=== PATIENT | male | born 1960 | race Caucasian/White ===

== ENCOUNTER 2024-01-26 09:24 | Inpatient (IN) ==
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
[2024-01-26] MEDS: SODIUM CHLORIDE 0.9% 1,000 ML IV ONE (10:18)
[2024-01-26 10:37] LABS: Basophils # (auto) 0.04 K/uL (0.00-0.20); Basophils % (auto) 0.5 %; Eosinophils # (auto) 0.05 K/uL (0.00-0.50); Eosinophils % (auto) 0.6 %; Hemoglobin 12.4 g/dl (14.0-18.0); Immature Granulocytes # (auto) 0.05 K/uL (0.01-0.20); Immature Granulocytes % (auto) 0.6 %; Lymphocytes # (auto) 1.24 K/uL (1.20-3.40); Lymphocytes % (auto) 15.1 %; Mean Corpuscular Hemoglobin 28.7 pg (25.0-34.0); Mean Corpuscular Hgb Conc 31.8 g/dL (32.0-36.0); Mean Corpuscular Volume 90.3 fL (80.0-100.0); Mean Platelet Volume 9.7 fL (9.4-12.4); Monocytes # (auto) 0.63 K/uL (0.11-0.59); Monocytes % (auto) 7.7 %; Neutrophils % (auto) 75.5 %; Platelet Count 364 K/uL (130-400); RDW Coefficient of Variation 13.8 % (11.5-14.5); RDW Standard Deviation 45.9 fL (36.4-46.3); Red Blood Count 4.32 M/uL (4.70-6.10); White Blood Count 8.21 K/ul (4.8-10.8)
--- NOTE | 2024-01-26 10:49 | XRay Report ---
XR chest 1V portable CLINICAL HISTORY: Cough. COMPARISON STUDY: Chest CT April 27, 2006. Chest radiograph November 25, 2023. FINDINGS: There is no pneumothorax. A small left pleural effusion has decreased in size since prior c hest radiograph of November 25, 2023. There is moderate left lower lung opacity. This was shown on prior e xam. Emphysema is present. There is no evidence for pulmonary edema. Cardiomediastinal silhouette is unremarkable. IMPRESSION: 1. Left lower lung opacity. The appearance favors pneumonia. However, radiographic follow-up is bladimir mmended to ensure resolution and exclude the possibility of an underlying pulmonary lesion given pers istence. Alternatively, a chest CT could be obtained. 2. Interval decrease in size of a left pleural effusion. ACT 112: Negative or not required by law. Electronically signed by: Jj Sifuentes M.D. 01/26/2024 10:47 AM
[2024-01-26 10:54] LABS: Albumin Globulin Ratio 0.8 (0.9-2); Albumin Level 3.8 gm/dl (3.4-5.0); BUN Creatinine Ratio 13.8 (10-20); Bilirubin,Total 0.5 mg/dl (0.2-1.0); Calcium 9.8 mg/dl (8.6-10.3); Creatinine Clr Calc Pharmacy 50.4 ml/min; Est GFR (African American) 82.1 ml/min; Est GFR (Non-African American) 70.9 ml/min; Globulin 4.8 gm/dl (2.5-4.0); Potassium 4.1 mmol/L (3.5-5.1); Total Protein 8.6 gm/dl (6.0-8.3)
[2024-01-26 11:00] LABS: Troponin I High Sensitivity 5.1 pg/ml (0-20)
[2024-01-26 11:09] LABS: Thyroid Stimulating Hormone 1.317 uIu/ml (0.300-4.500)
[2024-01-26] MEDS: OPTIRAY 320 125ml IV ONE (11:27)
--- NOTE | 2024-01-26 11:58 | Electrocardiogram Report ---
Test Reason : Blood Pressure : */* mmHG Vent. Rate : 87 BPM Atrial Rate : 87 BPM P-R Int : 116 ms QRS Dur : 80 ms QT Int : 366 ms P-R-T Axes : 80 71 62 degrees QTcB Int : 440 ms Normal sinus rhythm Diffuse Nonspecific ST abnormality Abnormal ECG When compared with ECG of 25-Nov-2023 06:17, No significant change was found Confirmed by Pasha Rincon ([id number]) on 01/26/2024 11:58:10 AM Referred By: REFERRED SELF Confirmed By: Pasha Rincon
--- NOTE | 2024-01-26 12:01 | CT Scan Report ---
CT ANGIOGRAPHY OF THE CHEST, PULMONARY EMBOLUS PROTOCOL CLINICAL HISTORY: Cough. Dyspnea. Evaluate for pulmonary embolus. COMPARISON STUDY: Chest CT April 27, 2006. Chest radiograph performed earlier today. TECHNIQUE: Following IV administration of 84 mL of Optiray, helical axial images of the chest were ob tained utilizing the pulmonary embolus protocol. Maximal intensity projections and sagittal and abdias nal reformats were viewed on an independent 3D workstation. IV contrast was administered without com plication. Automated exposure control was utilized for the study. A dose lowering technique was uti lized adhering to the principles of ALARA. CT DOSE: 373.57 mGy.cm FINDINGS: No pulmonary emboli are identified. There is no thoracic aortic dissection. There is moder ate plaque within the thoracic aorta. Note is made of occlusion of the proximal left subclavian arter y with reconstitution at the level of the origin of the left vertebral artery. Size of the heart is n ormal. No pericardial effusion. Mildly enlarged left hilar lymph nodes are present. Index left infrah ilar node on image 131 measures 1.9 x 1.2 cm. There is no pneumothorax. A moderate-sized loculated le ft pleural effusion with pleural thickening is present. There is an associated subpleural left lower lobe opacity with volume loss that measures 5.5 x 2.4 cm. This contains central lucency which likely reflects aerated emphysematous lung. Subpleural ground glass right lower lobe opacity is noted. Sever al left lower lobe subpleural nodular opacities are noted. The largest is a 1 cm focus on image 127. There is severe emphysema. Irregular right apical opacity is noted. This was present on CT of 2005 although the configuration has slightly changed. A 2.8 x 1.7 cm density with peripheral laura cency within the right lung apex is present. An 8 mm intraluminal density within the left upper lobe bronchus/takeoff of the lingular bronchus is noted. This is likely contiguous with the adjacent appar ent enlarged lymph node. Visualized portions of the upper abdomen are unremarkable. IMPRESSION: 1. No pulmonary emboli identified. 2. Loculated moderate size left pleural effusion with associated pleural thickening. This could refle ct a chronic pleural effusion. However, an empyema could appear similar. 3. Associated 5.5 x 2.4 cm subpleural left lower lobe opacity with volume loss. This contains central lucency which likely reflects aerated emphysematous lung. This could represent pneumonia. Developing round atelectasis could appear similar. A neoplastic etiology is considered less likely. However, a follow-up chest CT in 3 months to ensure stability/resolution is recommended. In addition, Pulmonary consultation is suggested. 4. 2.8 x 1.7 cm right apical density with peripheral lucency. This is nonspecific although could repr esent a mycetoma. Adjacent opacity favors scarring. Again, this is probably benign but should be asse ssed on follow-up CT. 5. Severe emphysema. 6. Left infrahilar lymph node versus mass which measures 1.9 x 1.2 cm. Possible associated endobronc hial component extending into the left upper lobe/lingular bronchus. A neoplastic etiology cannot be excluded. This can be assessed with bronchoscopy or short-term imaging follow-up. 7. Multiple indeterminate subpleural nodular densities within the left lower lobe. These could be inf ectious or neoplastic and can be assessed on follow-up CT. 7. Occlusion of the proximal left subclavian artery with reconstitution at the takeoff of the left ve rtebral artery. ACT 112: Positive. There are findings on this exam that require communication between the performing entity and the patient following Patient Test Result Information Act ([place] Act 112) guidelines. Electronically signed by: Jj Sifuentes M.D. 01/26/2024 11:58 AM
[2024-01-26 13:02] LABS: Influenza A virus by PCR Negative (Neg); Influenza B virus by PCR Negative (Neg); RSV by PCR Negative (Neg); SARS CoV2 RNA(COVID-19) Ceph NEGATIVE (Negative)
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
[2024-01-26] MEDS ORDERED: VANCOMYCIN CONSULT ACTIVE PRN (13:28)
[2024-01-26] MEDS: CEFEPIME 2,000 MG in SYRINGE 0 ML IV STA (14:09)
[2024-01-26] MEDS: VANCOMYCIN HCL 1,000 MG in SODIUM CHLORIDE 0.9% 250 ML IV STA (14:14)
[2024-01-26] MEDS ORDERED: POLYETHYLENE (MIRALAX) 17 GM PACK PO PRN (15:39)
[2024-01-26] MEDS ORDERED: ALUMINUM/MAGNESIUM SUSP 30 ML UDC PO PRN (15:39)
[2024-01-26] MEDS ORDERED: ONDANSETRON INJ 2 MG/ML 2 ML VIAL IV PRN (15:39)
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
[2024-01-26 16:09] LABS: Basophils # (auto) 0.02 K/uL (0.00-0.20); Basophils % (auto) 0.3 %; Eosinophils # (auto) 0.11 K/uL (0.00-0.50); Eosinophils % (auto) 1.7 %; Hematocrit (blood only) 32.9 % (42.0-52.0); Hemoglobin 10.6 g/dl (14.0-18.0); Immature Granulocytes # (auto) 0.03 K/uL (0.01-0.20); Immature Granulocytes % (auto) 0.5 %; Lymphocytes # (auto) 1.45 K/uL (1.20-3.40); Lymphocytes % (auto) 22.3 %; Mean Corpuscular Hemoglobin 28.5 pg (25.0-34.0); Mean Corpuscular Hgb Conc 32.2 g/dL (32.0-36.0); Mean Corpuscular Volume 88.4 fL (80.0-100.0); Mean Platelet Volume 9.2 fL (9.4-12.4); Monocytes # (auto) 0.53 K/uL (0.11-0.59); Monocytes % (auto) 8.1 %; Neutrophils # (auto) 4.37 K/uL (1.40-6.50); Neutrophils % (auto) 67.1 %; Platelet Count 325 K/uL (130-400); RDW Coefficient of Variation 13.8 % (11.5-14.5); RDW Standard Deviation 44.4 fL (36.4-46.3); Red Blood Count 3.72 M/uL (4.70-6.10); White Blood Count 6.51 K/ul (4.8-10.8)
[2024-01-26] MEDS: PIPERACILLIN/TAZOBACTAM 4.5 GM/100 ML BAG IV ONE (16:15)
[2024-01-26] MEDS: NICOTINE 21 MG/24 HR TDSY TD SCH (16:17)
--- NOTE | 2024-01-26 16:23 | Pharmacy Report ---
Pharmacy PK ABX Note - Date of Service January 26, 2024 - Assessment and Plan Assessment 63 year old M receiving vancomycin and zosyn for treatment of pulmonary infection- empyema of left pleural space. Blood culture pending. MRSA nasal pending. Renal function stable. Day #1 of antimicrobial therapy. Plan Vancomycin * Loading dose: 1000 mg IV x 1 * Maintenance dose: 1250 mg IV every 24 hours starting tonight * Regimen is predicted to achieve target AUC/BETITO of 400-600 mg/L.hr * Will obtain a level after ~ 48h of therapy (or sooner if clinically indicated). Pharmacy will continue to follow and will adjust dose/frequency as necessary. Thank you. Pharmacy has transitioned to AUC monitoring for vancomycin. AUC/BETITO is the preferred PK/PD target and is associated with decreased risk of nephrotoxicity compared to traditional trough targets.
[2024-01-26 16:25] LABS: Albumin Globulin Ratio 0.8 (0.9-2); Albumin Level 3.2 gm/dl (3.4-5.0); Bilirubin,Total 0.5 mg/dl (0.2-1.0); Calcium 8.7 mg/dl (8.6-10.3); Est GFR (African American) 99.5 ml/min; Est GFR (Non-African American) 85.8 ml/min; Globulin 4.1 gm/dl (2.5-4.0); Potassium 3.9 mmol/L (3.5-5.1); Total Protein 7.3 gm/dl (6.0-8.3)
[2024-01-26] MEDS: VANCOMYCIN HCL 1,250 MG in SODIUM CHLORIDE 0.9% 250 ML IV SCH (20:56)
[2024-01-26] MEDS: PIPERACILLIN/TAZOBACTAM 4.5 GM in DEXTROSE 5% MINI-B 100 ML IV SCH (22:31)
[2024-01-27 07:52] LABS: Basophils # (auto) 0.02 K/uL (0.00-0.20); Basophils % (auto) 0.3 %; Eosinophils # (auto) 0.12 K/uL (0.00-0.50); Eosinophils % (auto) 1.7 %; Hematocrit (blood only) 33.8 % (42.0-52.0); Hemoglobin 10.7 g/dl (14.0-18.0); Immature Granulocytes # (auto) 0.04 K/uL (0.01-0.20); Immature Granulocytes % (auto) 0.6 %; Mean Corpuscular Hemoglobin 28.1 pg (25.0-34.0); Mean Corpuscular Hgb Conc 31.7 g/dL (32.0-36.0); Mean Corpuscular Volume 88.7 fL (80.0-100.0); Mean Platelet Volume 9.3 fL (9.4-12.4); Monocytes # (auto) 0.61 K/uL (0.11-0.59); Monocytes % (auto) 8.8 %; Neutrophils # (auto) 5.24 K/uL (1.40-6.50); Neutrophils % (auto) 75.6 %; Platelet Count 304 K/uL (130-400); RDW Coefficient of Variation 13.8 % (11.5-14.5); RDW Standard Deviation 44.8 fL (36.4-46.3); Red Blood Count 3.81 M/uL (4.70-6.10); White Blood Count 6.93 K/ul (4.8-10.8)
[2024-01-27 08:10] LABS: Albumin Globulin Ratio 0.8 (0.9-2); Albumin Level 3.2 gm/dl (3.4-5.0); BUN Creatinine Ratio 10.4 (10-20); Bilirubin,Total 0.6 mg/dl (0.2-1.0); Calcium 8.7 mg/dl (8.6-10.3); Creatinine Clr Calc Pharmacy 59.4 ml/min; Est GFR (African American) 95.8 ml/min; Est GFR (Non-African American) 82.6 ml/min; Globulin 3.8 gm/dl (2.5-4.0); Potassium 4.1 mmol/L (3.5-5.1)
--- NOTE | 2024-01-27 11:27 | Pulmonary Consultation ---
Date of Consultation January 27, 2024 Assessment & Plan (1) Pleural effusion: Etiology is broad including infectious etiology and atypical infectious etiology and malignancy. Pleural fluid appears to be quite bloody. Unclear whether percutaneous chest tube will be successful in draining the effusion. I did p lace a 14 [place] pigtail catheter in the left pleural effusion today which drained about 100 cc of bloody fluid. Hesitant to start dornase and tPA protocol at this time given appearance of bloody effusion. Follow output over next 24 hours and consider transfer to a tertiary center for VATS or further intervention. Follow cytology and culture studies. Continue with Zosyn. Malignancy high on the differential given the CT findings and smoking history. Patient also with weight loss. (2) Emphysema: Symptoms appear stable at this time. No role for steroids. History of Present Illness Reason for Consultation: Left pleural effusion concerning for empyema Attending Physician: Kristin Pettit MD History of Present Illness 63-year-old male with a history of weight loss, emphysema CT chest which was positive for loculated pleural effusion concerning for empyema presenting to the ER for evaluation. CT chest revealed severe emphysema, hilar lymph nodes which were enlarged and possible associate endobronchial component extending to the left upper lobe lingular bronchus. Multiple undetermined subpleural nodular densities were seen in the left lower lobe. Loculated moderate size pleural effusion was seen with split pleural sign. Patient is hemodynamically stable. He is weak and fatigued. He is a heavy smoker. Allergies Allergy/AdvReac Type Severity Reaction Status Date / Time rosuvastatin Allergy Severe Seizure Unverified 01/26/24 10:57 codeine Allergy Unknown RASH AND Verified 01/26/24 10:57 SHAKY morphine Allergy Unknown GI UPSET Verified 01/26/24 10:57 AND TACHYCARDIA oxycodone Allergy Unknown RASH AND Verified 01/26/24 10:57 SHAKY Crestor Allergy Seizure Uncoded 12/07/23 15:15 Home Medications Medication Instructions Recorded Confirmed Type aspirin 81 mg tablet,delayed 81 mg PO DAILY 06/22/19 01/26/24 History release (Adult Aspirin Regimen) Patient History Family History Uncle Cancer Other Lung disease Denies family history of Sudden Ovarian cancer Prostate cancer Heart disease Myocardial infarction Breast cancer Stroke Social History Smoking Status: Current every day smoker Tobacco Type: Cigarettes Cigarettes Per Day: 3; Second Hand Exposure: Yes; Do You Dip or Chew Tobacco: No; Hx Alcohol Use: No Hx Substance Use: No Preferred Language: Divehi Communication Ability: Effective Lug Loader Required: No Beliefs That Will Affect Care: None marital status: Current Living Situation: Alone current occupational status: employed current occupation: [employer] Feels Safe at Home: Yes Childhood Exposure to Second-Hand Smoke: No Diet: regular caffeine: Yes Dental Care, Regularly: No Physical Activity Frequency: Daily Seatbelt Use: always Sunscreen Use: No Assistive Devices: None Review of Systems Review of Systems: All systems reviewed & are unremarkable except as noted in HPI & below Physical Exam Physical Exam: Constitutional: Patient appears to be of their stated age. Patient is in no apparent distress. Patient is well-developed. Eyes: Pupils are equal round and reactive to light. Conjunctivae are normal. Anicteric sclera. Ears nose, mouth and throat: Mallampati class 2. Normal posterior oropharynx. Uvula is midline. Neck: Trachea is midline. Visual inspection is normal. Respiratory: Rhonchi in the left lower lobes. Cardiovascular: Regular rate and rhythm. No murmurs. No edema. Gastrointestinal: Normal bowel sounds, soft, nontender and nondistended. No hepatosplenomegaly noted. Musculoskeletal: No cyanosis. Patient is able to move all extremities. Strength is 5 out of 5 in the upper and lower extremities. Skin: No rashes, warm dry and intact. Neurologic: No obvious focal neurological deficits seen. Psychiatric: Alert and oriented x3 with a euthymic affect. Results & Data Results & Data Vital Signs (Past 12 Hours) Vital Signs Temp Pulse Resp BP Pulse Ox O2 Del Method 01/27/24 08:10 36.8 C 91 H 16 95/60 L 91 Room Air 01/27/24 02:40 37.3 C 82 14 90/59 L 91 Room Air PG Care Time/CCT Total # of Minutes Spent Total Time Spent with Patient: Total time spent is greater than 50% in coordination of care (as documented) at patient's floor/unit and/or counseling patient: Coding Level of Care Code 42157 IN/OBS CONSULT LVL 5,80M Diagnoses Pleural effusion J90 Emphysema J43.9
--- NOTE | 2024-01-27 13:25 | Procedure Note ---
Procedure Note Date of Service January 27, 2024 PIGTAIL CATHETER PLACEMENT NOTE: Procedure: Pigtail Catheter Chest Tube Placement Indication: Loculated left pleural effusion Anesthesia: 10 mL lidocaine 2% Written consent was obtained and placed on the chart. Timeout was done prior to the procedure. Prior to procedure, chest x-ray films were reviewed by myself and demonstrated small loculated left effusion. A time-out was completed verifying correct patient, procedure, site, positioning, and implant(s) or special equipment if applicable. Utilizing bedside ultrasound, chest wall was evaluated for location for optimal chest tube placement. Location between the 6 and 7 ribs were marked on the skin using gentle pressure. The left sided chest wall was prepped with chlorhexidine and draped in the typical sterile fashion. 10 mL of 1% Lidocaine without epinephrine was used to anesthetize the skin down to the dorsal surface of the 6 rib. Fluid return confirmed entry into the pleural space. Lidocaine was injected into the pleural space for increased anesthetization. Introducer needle on syringe was inserted in perpendicular fashion taking care to ride just above the dorsal surface of the 6 rib. Entry into the pleural space was heralded by fluid return into the syringe while under gentle aspiration. Guide wire was advanced into the pleural space without resistance and the introducer needle was subsequently removed. Scalpel was used to make small incision of the superficial tissue, parallel to the direction of the rib anatomy. Dilator was advanced uneventfully over the guide wire into the pleural space. 14 Spanish Pigtail Catheter was inserted into the pleural space. Inner introducer and guide wire were removed. Drain was immediately connected to pre-prepared CONCETTA pleur-evac system. Pigtail was sutured securely in place and sterile dressing was applied. Chest tube was placed to -20 cmH2O suction. Patient tolerated procedure well. Blood Loss: Minimal Complications: None Postprocedure chest x-ray is pending. Follow-up cultures, cell counts and cytology. [facility] [place] Procedure Codes (Charges) Pulmonary/Thoracic Procedure 1: Pulmonary and Thoracic: 37849 Tube thoracostomy Procedure 2: Pulmonary and Thoracic: 42443 US, Chest, real time with imaging documentation Coding CPT Codes Pulmonary/Thoracic - Pulmonary and Thoracic: 89766 Tube thoracostomy ([id number]) Pulmonary/Thoracic - Pulmonary and Thoracic: 51986 US, Chest, real time with imaging documentation ([id number]) Additional Codes Date of Service (PG.SURGERY)
--- NOTE | 2024-01-27 13:40 | XRay Report ---
XR chest 1V portable CLINICAL HISTORY: chest tube placement COMPARISON STUDY: Chest radiograph and chest CT January 26, 2024 FINDINGS: There is no pneumothorax following placement of a left basilar pleural catheter. The left p leural effusion has decreased in size since prior exam. Left lower lung opacity is again noted. The r ight apical density with peripheral lucency is better depicted on CT. No evidence for pulmonary edema . Cardiomediastinal silhouette is normal. IMPRESSION: No pneumothorax following placement of a left pleural catheter. Decrease in size of the left pleural effusion. ACT 112: Negative or not required by law. Electronically signed by: Jj Sifuentes M.D. 01/27/2024 1:39 PM
--- NOTE | 2024-01-27 13:41 | XCELERA ---
[id number] \\[id number]}___[id number]
[2024-01-27 14:38] LABS: Albumin Level 3.3 gm/dl (3.4-5.0); Bilirubin,Total 0.5 mg/dl (0.2-1.0); Total Protein 7.3 gm/dl (6.0-8.3)
[2024-01-27 14:45] LABS: Total Protein Pleural Fluid 5.1 gm/dl
[2024-01-27 14:50] LABS: Appearance Pleural Fluid Bloody; Color Pleural Fluid Red; RBC Pleural Fluid Auto 989000 /uL; Source Pleural Fluid Left Lung; WBC Pleural Fluid Auto 4285 /uL
--- NOTE | 2024-01-27 15:09 | Hospitalist Progress Note ---
Date of Service January 27, 2024 Assessment & Plan (1) Empyema of left pleural space: Plan: Patient presents with fatigue, dizziness CT of the chest consistent with left pleural effusion, possible empyema Suspected metastatic lung cancer, based on the CAT scan findings real estate legal assistant carlos completed, chest tube and plan for bronch (2) Emphysema: Plan: Long history of smoking, underlying emphysema Nebulizers as needed (3) Hyperthyroidism: Plan: TSH normal Admission and Anticipated Discharge Date Admission Date: January 26, 2024 Subjective RESTING COMFORTABLY, NO SHORTNESS OF BREATH OR CHEST PAIN, DIZZINESS Physical Exam Physical Exam: Resting comfortably AAO#3, Non focal Lungs decreased / ronchi left lung base PA Soft, NT, ND, BS+ Skin no rash Pleasant and calm Results & Data Results & Data Vital Signs (Past 12 Hours) Vital Signs Temp Pulse Pulse Resp BP Pulse Ox O2 Del Method 01/27/24 15:01 37.1 C 90 18 106/69 95 Room Air 01/27/24 13:53 89 17 94/60 L 94 Room Air 01/27/24 13:04 91 H 16 98/67 L 95 Room Air 01/27/24 12:56 96 H 16 97/68 L 94 Room Air 01/27/24 12:45 93 H 16 97/64 L 95 Room Air 01/27/24 12:39 92 H 18 99/70 L 95 Room Air 01/27/24 12:36 95 H 18 105/72 95 Room Air 01/27/24 12:34 94 H 18 100/70 95 Room Air 01/27/24 12:30 93 H 18 114/79 95 Room Air 01/27/24 11:31 36.9 C 87 16 104/65 94 Room Air 01/27/24 08:10 36.8 C 91 H 16 95/60 L 91 Room Air PG Care Time/CCT Total # of Minutes Spent Total Time Spent with Patient: Total time spent is greater than 50% in coordination of care (as documented) at patient's floor/unit and/or counseling patient: Coding Level of Care Code 34515 SUB INP/OBS CARE 2/35MIN Diagnoses Empyema of left pleural space J86.9 Emphysema J43.9 Hyperthyroidism E05.90
[2024-01-27] MEDS: LIDOCAINE 2% 20 MG/ML 5 ML SYR IV ONE (16:47)
[2024-01-27] MEDS: LIDOCAINE 2% LOCAL 50 ML VIAL ONE (16:48)
[2024-01-28] MEDS: KETOROLAC TROMETHAMINE 15 MG/ML VIAL IV ONE
[2024-01-28 06:11] LABS: Basophils # (auto) 0.03 K/uL (0.00-0.20); Basophils % (auto) 0.5 %; Eosinophils # (auto) 0.17 K/uL (0.00-0.50); Eosinophils % (auto) 2.8 %; Hematocrit (blood only) 30.9 % (42.0-52.0); Hemoglobin 9.9 g/dl (14.0-18.0); Immature Granulocytes # (auto) 0.01 K/uL (0.01-0.20); Immature Granulocytes % (auto) 0.2 %; Lymphocytes # (auto) 1.17 K/uL (1.20-3.40); Lymphocytes % (auto) 19.6 %; Mean Corpuscular Hemoglobin 28.4 pg (25.0-34.0); Mean Corpuscular Volume 88.5 fL (80.0-100.0); Mean Platelet Volume 9.4 fL (9.4-12.4); Monocytes # (auto) 0.56 K/uL (0.11-0.59); Monocytes % (auto) 9.4 %; Neutrophils # (auto) 4.03 K/uL (1.40-6.50); Neutrophils % (auto) 67.5 %; Platelet Count 285 K/uL (130-400); RDW Coefficient of Variation 13.6 % (11.5-14.5); RDW Standard Deviation 43.8 fL (36.4-46.3); Red Blood Count 3.49 M/uL (4.70-6.10); White Blood Count 5.97 K/ul (4.8-10.8)
[2024-01-28 06:25] LABS: BUN Creatinine Ratio 10.6 (10-20); Calcium 8.9 mg/dl (8.6-10.3); Creatinine Clr Calc Pharmacy 55.1 ml/min; Est GFR (African American) 86.9 ml/min; Potassium 4.2 mmol/L (3.5-5.1)
[2024-01-28 07:04] LABS: Lymphocytes, Fluid 20 %; Neutrophils, Fluid 80 %
--- NOTE | 2024-01-28 07:16 | XRay Report ---
XR chest 1V portable CLINICAL HISTORY: chest tube TECHNIQUE: Single frontal radiograph of the chest was obtained. Comparison: Comparison is made to chest radiograph 01/27/2024 FINDINGS: Left chest tube is seen. The cardiomediastinal silhouette is normal. Left lower lung airspace opacity has increased in conspicuity from prior exam. Stable small left pleural effusion without evidence of pneumothorax. IMPRESSION: Left pleural effusion is seen with somewhat more prominent adjacent airspace opacity likely represent ing atelectasis with or without superimposed aspiration/pneumonia. ACT 112: Negative or not required by law. Electronically signed by: Jose White M.D. 01/28/2024 7:15 AM
--- NOTE | 2024-01-28 07:57 | Pulmonology Progress Note ---
Date of Service January 28, 2024 Assessment & Plan (1) Pleural effusion: (2) Emphysema: Plan IMPRESSION: 63-year-old male with a significant past medical history of emphysema with likely COPD diagnosis in the setting of significant smoking history with findings of LEFT lower lobe dense consolidative process with associated effusion who underwent pigtail catheter placement yesterday for characterization of fluid. 1. LEFT-sided effusion - Pleural fluid reviewed and appears to be exudative with predominant RBCs. Cultures and cytology pending at this point. Effusion concerning for empyema versus parapneumonic effusion. Currently covered with broad-spectrum antibiotics in the form of Zosyn. Given persistence of effusion despite catheter in place and associated decreased chest tube output, consideration for intrapleural tPA/dornase administration (MIST2 Protocol) could be considered for this patient. Previous concerns were for the bloody output from the effusion itself. At this point, it may make more sense to attempt MIST2 prior to consideration for transfer for VATS - which may ultimately need to occur. 2. Pneumonia - LEFT lower lobe consolidative process noted with associated effusion as above. Continue with antibiotic coverage for now pending cultures of pleural fluid. Consideration for de-escalation pending these results. 3. RIGHT upper lobe apical lung density - Possible mycetoma. Short-term follow-up CT. 4. Subpleural nodules with associated LEFT infrahilar lymph node enlargement - While neoplastic process is certainly on the differential, short-term follow-up CT is favored after resolution of #1. This can be arranged in outpatient follow-up as well. Thank you for allowing us to participate in the care of this pleasant patient. Pulmonary medicine will continue to follow along. Admission and Anticipated Discharge Date Admission Date: January 26, 2024 Subjective Patient seen and evaluated at bedside. He reports that he is breathing better since the placement of chest tube. He notes discomfort at the chest tube site, but no pleuritic discomfort, dyspnea, cough, hemoptysis. Review of Systems Review of Systems: A complete 10 point review of systems was reviewed with the patient with pertinent positives and negatives as per history of present illness. All else were negative. Physical Exam Physical Exam: VITAL SIGNS - Vital signs and nursing notes were reviewed. GENERAL - 63-year-old male appearing his stated age who is in no acute distress. Communicates well with provider and answers questions appropriately. SKIN - LEFT sided posterior chest tube site clean, dry, and intact. NOSE - Midline and without cyanosis. MOUTH/OROPHARYNX - Without perioral cyanosis. NECK - Neck with FROM. LUNGS - Chest wall evaluation demonstrates increased chest wall A:P diameter. Auscultation reveals delayed air entry without wheeze. CARDIAC - RRR with S1/S2. No murmur, rubs, or gallops appreciated. ABDOMEN - Abdominal inspection demonstrates flat. BS normoactive all four quadrants. No tenderness, palpable masses, or ascites noted. EXTREMITIES - Nail clubbing not present. No peripheral cyanosis. No pretibial edema present. +3/5 radial palpated throughout. PSYCH - A&Ox3 and cooperates fully with examiner. Pt is very pleasant and interacts well with examiner. Results & Data Results & Data Vital Signs (Past 12 Hours) Vital Signs Temp Pulse Pulse Resp BP Pulse Ox O2 Del Method 01/28/24 03:06 36.6 C 66 14 99/65 L 98 Nasal Cannula 01/28/24 00:14 Nasal Cannula 01/28/24 00:12 87 01/27/24 22:55 37.5 C 84 16 99/66 L 93 Room Air O2 Flow Rate 01/28/24 03:06 2.0 01/28/24 00:14 2 01/28/24 00:12 01/27/24 22:55 PG Care Time/CCT Total # of Minutes Spent Total Time Spent with Patient: Total time spent is greater than 50% in coordination of care (as documented) at patient's floor/unit and/or counseling patient: Coding Level of Care Code 26157 SUB INP/OBS CARE 2/35MIN Diagnoses Pleural effusion J90 Emphysema J43.9
[2024-01-28] MEDS: ALTEPLASE, RECOMBINANT 10 MG in SYRINGE 50 ML IPL SCH (12:59)
[2024-01-28] MEDS: DORNASE ALFA 5 ML in SYRINGE 25 ML IPL SCH (15:28)
--- NOTE | 2024-01-28 17:48 | Hospitalist Progress Note ---
Date of Service January 28, 2024 Assessment & Plan (1) Empyema of left pleural space: Plan: Patient presents with fatigue, dizziness, and cough with shortness of breath developing over 6 to 7 weeks. In the setting of history of smoking and known COPD, weight loss He was treated with doxycycline 7 weeks ago after being seen in the ER CT of the chest with left loculated moderate-sized pleural effusion with pleural thickening, possible empyema and also with 5.5 x 2.4 cm subpleural left lower lobe opacity with volume loss with central lucency which could represent pneumonia, neoplastic etiology less likely. Also with right apical 2.8 x 1.7 cm density with peripheral lucency could represent mycetoma. Also with left infrahilar lymph node versus mass measuring 1.9 x 1.2 cm and possible associated endobronchial component extending to left upper lobe/lingular bronchus, multiple indeterminant subpleural nodular densities left lower lobe infectious versus neoplastic. 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 Pleural effusion fluid was bloody and is consistent with exudative effusion Pleural fluid cultures with Gram stain negative for bacteria, many WBCs, culture pending Pleural fluid cytology pending Sputum culture pending Blood culture-no growth to date Flu/COVID/RSV negative Remains afebrile, no leukocytosis, symptoms are improving Continue Zosyn Start MIST-2 protocol x 3 days on 01/27 If not improving, may need transfer for VATS procedure Will need repeat chest CT in short-term follow-up to assess for malignancy Follow CBC given mild anemia and bloody effusion, BMP Defer to pulmonology as to whether needs bronchoscopy or not (2) Emphysema: Plan: Long history of smoking, underlying emphysema Nebulizers as needed, no need for steroids Is not on maintenance inhalers (3) Hyperthyroidism: Plan: TSH normal Not on medication although methimazole is in his chart in the past Plan DVT prophylaxis-add SCDs, avoid anticoagulants due to bloody pleural fluid drainage and mildly decreasing hemoglobin Disposition-continued stay on telemetry unit Admission and Anticipated Discharge Date Admission Date: January 26, 2024 Subjective Patient has some pain in the left side of his back at the site of his chest tube but otherwise feels improvement with his shortness of breath. He has no other complaints. He did cough up sputum for sputum sample and reports there was some blood in it Telemetry with normal sinus rhythm and rates in the 60s to 80s Physical Exam Constitutional: + thin; no acute distress Respiratory: normal respiratory effort; no cough Auscultation: + diminished lung sounds (Left base) and + wheezes (Scattered expiratory wheezes on the right); no crackles Cardiovascular: RRR, no murmur, no edema Gastrointestinal (Abdomen): normal bowel sounds, soft, nontender, no hepatos plenomegaly Psychiatric: A+Ox3, euthymic affect Results & Data Results & Data Vital Signs (Past 12 Hours) Vital Signs Temp Pulse Pulse Resp BP Pulse Ox O2 Del Method 01/28/24 15:55 36.7 C 79 19 105/71 94 Room Air 01/28/24 13:01 81 01/28/24 11:23 36.7 C 68 19 109/72 97 Nasal Cannula 01/28/24 08:00 71 01/28/24 08:00 Nasal Cannula O2 Flow Rate FiO2 01/28/24 15:55 01/28/24 13:01 01/28/24 11:23 2 01/28/24 08:00 01/28/24 08:00 2 Laboratory Results CBC, BMP, sputum culture, pleural fluid cultures, blood culture reviewed Diagnostic Findings Chest EXTR reviewed PG Care Time/CCT Total # of Minutes Spent Total Time Spent with Patient: Total time spent is greater than 50% in coordination of care (as documented) at patient's floor/unit and/or counseling patient: Coding Level of Care Code 40798 SUB INP/OBS CARE 2/35MIN Diagnoses Empyema of left pleural space J86.9 Emphysema J43.9 Hyperthyroidism E05.90
[2024-01-28] MEDS: ACETAMINOPHEN 325 MG TAB PO PRN (17:52)
[2024-01-28] MEDS ORDERED: ALBUT/IPRATROP 3MG/0.5MG NEB 3 ML VIAL NEB PRN (17:59)
[2024-01-28] MEDS: KETOROLAC TROMETHAMINE 15 MG/ML VIAL IV PRN (21:35)
[2024-01-29 06:13] LABS: Basophils # (auto) 0.02 K/uL (0.00-0.20); Basophils % (auto) 0.3 %; Eosinophils # (auto) 0.25 K/uL (0.00-0.50); Eosinophils % (auto) 4.2 %; Hematocrit (blood only) 33.4 % (42.0-52.0); Hemoglobin 10.8 g/dl (14.0-18.0); Immature Granulocytes # (auto) 0.02 K/uL (0.01-0.20); Immature Granulocytes % (auto) 0.3 %; Lymphocytes # (auto) 1.15 K/uL (1.20-3.40); Lymphocytes % (auto) 19.3 %; Mean Corpuscular Hemoglobin 28.6 pg (25.0-34.0); Mean Corpuscular Hgb Conc 32.3 g/dL (32.0-36.0); Mean Corpuscular Volume 88.4 fL (80.0-100.0); Mean Platelet Volume 9.5 fL (9.4-12.4); Monocytes # (auto) 0.51 K/uL (0.11-0.59); Monocytes % (auto) 8.5 %; Neutrophils # (auto) 4.02 K/uL (1.40-6.50); Neutrophils % (auto) 67.4 %; Platelet Count 321 K/uL (130-400); RDW Coefficient of Variation 13.5 % (11.5-14.5); RDW Standard Deviation 43.7 fL (36.4-46.3); Red Blood Count 3.78 M/uL (4.70-6.10); White Blood Count 5.97 K/ul (4.8-10.8)
[2024-01-29 06:19] LABS: BUN Creatinine Ratio 13.4 (10-20); Creatinine Clr Calc Pharmacy 51.6 ml/min; Est GFR (African American) 79.5 ml/min; Est GFR (Non-African American) 68.6 ml/min; Magnesium 2.2 mg/dl (1.7-2.4); Potassium 4.5 mmol/L (3.5-5.1)
--- NOTE | 2024-01-29 07:48 | Pulmonology Progress Note ---
Date of Service January 29, 2024 Assessment & Plan (1) Pleural effusion: (2) Emphysema: Plan IMPRESSION: 63-year-old male with a significant past medical history of emphysema with likely COPD diagnosis in the setting of significant smoking history with findings of LEFT lower lobe dense consolidative process with associated effusion who underwent pigtail catheter placement 01/27/2024. 1. LEFT-sided effusion -neutrophilic exudate, possibly secondary to lung abscess with empyema. Malignancy not excluded and cytology still pending. Continue drainage with mist 2 protocol and daily chest x-rays. Would keep chest tube in place until drainage is less than 200 cc per 24 hours and x-ray demonstrates improvement. May need CT scan prior to discontinuation of the tube. 2. Pneumonia - LEFT lower lobe consolidative process noted with associated effusion as above. Day #3 Zosyn. Can de-escalate to Unasyn 3. RIGHT upper lobe apical lung density - Possible mycetoma. Short-term follow-up CT. the apical density was identified to a lesser degree on the CT scan from 2005. 4. Subpleural nodules with associated LEFT infrahilar lymph node enlargement - While neoplastic process is certainly on the differential, short-term follow-up CT is favored after resolution of #1. This can be arranged in outpatient follow-up in 2 to 3 months Thank you for allowing us to participate in the care of this pleasant patient. Pulmonary medicine will continue to follow along. Admission and Anticipated Discharge Date Admission Date: January 26, 2024 Subjective Patient seen and examined. EMR reviewed. Patient reports he is doing well. He is not having any pain. He is having some slight blood-tinged sputum production but no fevers chills or night sweats. He has not noted any lower extremity edema. Appetite is good. Pain is well- controlled. Review of Systems 2 Review of Systems: All systems reviewed & are unremarkable except as noted in Subjective Physical Exam 2 Constitutional: + thin; no acute distress Neck: trachea midline, no thyromegaly Respiratory: no respiratory distress, no labored breathing, no cough and not tachypneic Auscultation: + diminished lung sounds Chest tube site dressed Cardiovascular: RRR, no murmur, no edema Gastrointestinal (Abdomen): normal bowel sounds, soft, nontender, no hepatosplenomegaly Musculoskeletal: Extremities: extremities normal to inspection Skin: no rashes, warm and dry Neurologic: Nonfocal exam Lymphatic: no cervical lymphadenopathy Results & Data Results & Data Vital Signs (Past 12 Hours) Vital Signs Temp Pulse Resp BP Pulse Ox O2 Del Method 01/29/24 03:13 36.3 C L 70 14 114/75 93 Room Air 01/28/24 23:11 36.5 C 65 14 105/69 94 Room Air Chest tube output, 450 cc last 24 hours Laboratory Results Microbiology 01/27/24 Unknown Sputum, Expectorated Gram Stain - Final 01/27/24 Unknown Sputum, Expectorated Sputum Culture - Final Light normal chyna. 01/26/24 13:38 Blood Aerobic Blood Culture - Preliminary No growth in Aerobic bottle after 48 hours. 01/26/24 13:38 Blood Anaerobic Blood Culture - Preliminary No growth in Anaerobic bottle after 48 hours. 01/27/24 13:10 Pleural Fluid Gram Stain - Final 01/27/24 13:10 Pleural Fluid Aerobic and Anaerobic Culture - Preliminary No growth to date. 01/29/24 05:42 01/29/24 05:42 Diagnostic Findings Chest x-ray from today was independently reviewed. Demonstrates improved aeration at the left lung base. PG Care Time/CCT Total # of Minutes Spent Total Time Spent with Patient: Total time spent is greater than 50% in coordination of care (as documented) at patient's floor/unit and/or counseling patient: Coding Level of Care Code 58386 SUB INP/OBS CARE 2/35MIN Diagnoses Pleural effusion J90 Emphysema J43.9
--- NOTE | 2024-01-29 08:33 | XRay Report ---
XR chest 1V portable HISTORY: chest tube COMPARISON: Chest 01/28/2024. FINDINGS: A left basilar chest tube is unchanged in position. A small left pleural effusion and left basilar densities persist. Suspect a tiny left apical pneumothorax demonstrated a maximal pleural gap of 4 mm. The heart is normal in size. Linear densities within the right midlung zone favor scarring or subsegmental atelectasis. Right apical pleural thickening/density persists. A right apical mycetom a is better appreciated on the recent chest CT. Emphysema again noted. IMPRESSION: 1. The left basilar chest tube is unchanged in position. A tiny left apical pneumothorax persists. 2. Small left pleural effusion and left basilar densities remain unchanged. 3. Emphysema. 4. Right apical pleural thickening with a right apical density suggestive of a mycetoma again noted. ACT 112: Negative or not required by law. Electronically signed by: Frankie Hawley M.D. 01/29/2024 8:30 AM
[2024-01-29] MEDS: AMPICILLIN/SULBACTAM SOD 3,000 MG in SODIUM CHLOR 0.9% MINI-B 100 ML IV SCH (10:27)
--- NOTE | 2024-01-29 17:34 | Hospitalist Progress Note ---
Date of Service January 29, 2024 Assessment & Plan (1) Empyema of left pleural space: Plan: Patient presents with fatigue, dizziness, and cough with shortness of breath developing over 6 to 7 weeks. In the setting of history of smoking and known COPD, weight loss He was treated with doxycycline 7 weeks ago for LLL PNA on CXR after being seen in the ER CT of the chest with left loculated moderate-sized pleural effusion with pleural thickening, possible empyema and also with 5.5 x 2.4 cm subpleural left lower lobe opacity with volume loss with central lucency which could represent pneumonia, neoplastic etiology less likely. Also with right apical 2.8 x 1.7 cm density with peripheral lucency could represent mycetoma (this was also present on CT [facility] from 2005 to a lesser degree). Also with left infrahilar lymph node versus mass measuring 1.9 x 1.2 cm and possible associated endobronchial component extending to left upper lobe/lingular bronchus, multiple indeterminant subpleural nodular densities left lower lobe infectious versus neoplastic. 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 Pleural effusion fluid was bloody and is consistent with exudative effusion Pleural fluid cultures with Gram stain negative for bacteria, many WBCs, culture pending but prelim negative Pleural fluid cytology with atypical epithelial cells but mostly blood, nondiagnostic Sputum culture light normal chyna AFB smear neg, AFB cx pending Blood culture-no growth to date Flu/COVID/RSV negative Remains afebrile, no leukocytosis, symptoms are improving, in midst of the MIST- 2 protocol and draining > 200mL/day Continue Zosyn Finish MIST-2 protocol x 3 days on 01/29-plan to remove chest tube after < 200mL/day drainage CXR with tiny left apical PTX on 01/28 If not improving, may need transfer for VATS procedure but seems less likely now as per PULM Will need repeat chest CT in short-term follow-up to assess for malignancy and improvement Continue oxycodone prn pain from chest tube Follow CBC given mild anemia and bloody effusion, bloody sputum Follow BMP Defer to pulmonology as to whether needs bronchoscopy or not for RUL mycetoma Also defer to PULM as to whether or not to reaspirate for repeat pleural fluid cytology given it was nondiagnostic (2) Emphysema: Plan: Long history of smoking, underlying emphysema Nebulizers as needed, no need for steroids Is not on maintenance inhalers (3) Hyperthyroidism: Plan: TSH normal Not on medication although methimazole is in his chart in the past Plan DVT prophylaxis-SCDs, avoid anticoagulants due to bloody pleural fluid drainage and mildly decreasing hemoglobin Disposition-continued stay on telemetry unit Admission and Anticipated Discharge Date Admission Date: January 26, 2024 Subjective Pt has some pain at chest tube site, still some small amounts of bloody sputum he is coughing up. Otherwise is eating, moving bowels, no other issues. Tele with NSR rate 60-70s Physical Exam Constitutional: + thin; no acute distress Respiratory: normal respiratory effort; no cough Auscultation: + diminished lung sounds (Left base); no crackles and no wheezes Cardiovascular: RRR, no murmur, no edema Gastrointestinal (Abdomen): normal bowel sounds, soft, nontender, no hepatosplenomegaly Psychiatric: A+Ox3, euthymic affect Results & Data Results & Data Vital Signs (Past 12 Hours) Vital Signs Temp Pulse Pulse Resp BP Pulse Ox O2 Del Method 01/29/24 14:43 77 01/29/24 14:42 36.9 C 74 16 105/73 95 Room Air 01/29/24 13:35 68 01/29/24 07:56 Room Air 01/29/24 07:48 36.7 C 86 17 106/75 94 Room Air Laboratory Results CBC,BMP, mag, sputum cx, pleural fluid cx, blood cx, and pleural fluid cytology reviewed PG Care Time/CCT Total # of Minutes Spent Total Time Spent with Patient: Total time spent is greater than 50% in coordination of care (as documented) at patient's floor/unit and/or counseling patient: Coding Level of Care Code 55745 SUB INP/OBS CARE 235MIN Diagnoses Empyema of left pleural space J86.9 Emphysema J43.9 Hyperthyroidism E05.90
[2024-01-30 07:07] LABS: Basophils # (auto) 0.02 K/uL (0.00-0.20); Basophils % (auto) 0.3 %; Eosinophils # (auto) 0.29 K/uL (0.00-0.50); Eosinophils % (auto) 4.9 %; Hematocrit (blood only) 32.2 % (42.0-52.0); Hemoglobin 10.4 g/dl (14.0-18.0); Immature Granulocytes # (auto) 0.03 K/uL (0.01-0.20); Immature Granulocytes % (auto) 0.5 %; Lymphocytes # (auto) 1.26 K/uL (1.20-3.40); Lymphocytes % (auto) 21.1 %; Mean Corpuscular Hemoglobin 28.6 pg (25.0-34.0); Mean Corpuscular Hgb Conc 32.3 g/dL (32.0-36.0); Mean Corpuscular Volume 88.5 fL (80.0-100.0); Mean Platelet Volume 9.4 fL (9.4-12.4); Monocytes # (auto) 0.48 K/uL (0.11-0.59); Monocytes % (auto) 8.1 %; Neutrophils # (auto) 3.88 K/uL (1.40-6.50); Neutrophils % (auto) 65.1 %; Platelet Count 332 K/uL (130-400); RDW Coefficient of Variation 13.9 % (11.5-14.5); RDW Standard Deviation 44.6 fL (36.4-46.3); Red Blood Count 3.64 M/uL (4.70-6.10); White Blood Count 5.96 K/ul (4.8-10.8)
--- NOTE | 2024-01-30 07:19 | XRay Report ---
XR chest 1V portable HISTORY: chest tube COMPARISON: Chest 01/29/2024. FINDINGS: Left basilar chest tube and a small left pleural effusion are again noted. No definite pneu mothorax. The heart is normal in size. Linear scarlike densities within the right midlung zone persis t. Emphysema again noted. Hazy left basilar density remains unchanged. No evidence for pulmonary candace a. No acute fractures. Right apical pleural thickening and a right apical nodular density remain unch anged. This may represent a mycetoma compared to the recent CT. IMPRESSION: 1. The left basilar chest tube remains unchanged in position. No definite pneumothorax. 2. Small left pleural effusion and left basilar densities persist. 3. Right apical density/mycetoma again noted. ACT 112: Negative or not required by law. Electronically signed by: Frankie Hawley M.D. 01/30/2024 7:18 AM
[2024-01-30 07:26] LABS: BUN Creatinine Ratio 14.3 (10-20); Calcium 8.8 mg/dl (8.6-10.3); Creatinine Clr Calc Pharmacy 68.2 ml/min; Est GFR (African American) 106.5 ml/min; Est GFR (Non-African American) 91.9 ml/min; Potassium 4.3 mmol/L (3.5-5.1)
--- NOTE | 2024-01-30 08:29 | Pulmonology Progress Note ---
Date of Service January 30, 2024 Assessment & Plan (1) Pleural effusion: (2) Emphysema: Plan IMPRESSION: 63-year-old male with a significant past medical history of emphysema with likely COPD diagnosis in the setting of significant smoking history with findings of LEFT lower lobe dense consolidative process with associated effusion who underwent pigtail catheter placement 01/27/2024. He is completed 2 to 3 days of the mist 2 protocol with radiographic and clinical improvement. Atypical cells were identified on cytology 1. LEFT-sided effusion -neutrophilic exudate, possibly secondary to lung abscess with empyema versus malignancy. At this point time would recommend completing 6 weeks of antimicrobial therapy. Can transition to oral Augmentin. Patient will need follow-up with pulmonary in 6 weeks and follow-up CT scan at that point in time to determine whether or not additional intervention is required. If the radiographic abnormalities persist, will need bronchoscopy with potential biopsy. Chest tube will remain in place until drainage is less than 200 cc. X-ray shows radiographic improvement. 2. Pneumonia - LEFT lower lobe consolidative process noted with associated effusion as above. Will transition to Augmentin with plans for 6-week course 3. RIGHT upper lobe apical lung density -short-term radiographic surveillance recommended 4. Subpleural nodules with associated LEFT infrahilar lymph node enlargement - While neoplastic process is certainly on the differential, short-term follow-up CT is favored after resolution of #1. This can be arranged in outpatient follow-up in 2 to 3 months Thank you for allowing us to participate in the care of this pleasant patient. Pulmonary medicine will continue to follow along. Admission and Anticipated Discharge Date Admission Date: January 26, 2024 Subjective Patient seen and examined. EMR reviewed. The patient reports that he is feeling well. He is on room air. He is not coughing or wheezing. The scant hemoptysis he experienced previously has resolved. He denies chest pain or palpitations. No significant lower extremity edema. Review of Systems 2 Review of Systems: All systems reviewed & are unremarkable except as noted in Subjective Physical Exam 2 Constitutional: + thin; no acute distress Neck: trachea midline, no thyromegaly Respiratory: no respiratory distress, no labored breathing, no cough and not tachypneic Auscultation: + diminished lung sounds Chest tube site dressed Cardiovascular: RRR, no murmur, no edema Gastrointestinal (Abdomen): normal bowel sounds, soft, nontender, no hepatosplenomegaly Musculoskeletal: Extremities: extremities normal to inspection Skin: no rashes, warm and dry Neurologic: Nonfocal exam Lymphatic: no cervical lymphadenopathy Results & Data Results & Data Vital Signs (Past 12 Hours) Vital Signs Temp Pulse Pulse Resp BP Pulse Ox O2 Del Method 01/30/24 07:29 36.9 C 74 17 123/77 93 Room Air 01/30/24 03:17 37.0 C 76 16 128/80 94 Room Air 01/30/24 01:14 37.1 C 77 14 112/71 95 Room Air 01/30/24 00:37 71 01/29/24 23:18 Room Air Chest tube output last 24 hours: 540 mL bloody fluid Laboratory Results 01/30/24 06:31 01/30/24 06:31 Pleural fluid cytology with atypical cells identified, unclear if these represent reactive mesothelial cells or potentially malignancy. Follow-up recommended PG Care Time/CCT Total # of Minutes Spent Total Time Spent with Patient: Total time spent is greater than 50% in coordination of care (as documented) at patient's floor/unit and/or counseling patient: Coding Level of Care Code 11198 SUB INP/OBS CARE 2/35MIN Diagnoses Pleural effusion J90 Emphysema J43.9
--- NOTE | 2024-01-30 10:33 | Hospitalist Progress Note ---
Date of Service January 30, 2024 Assessment & Plan (1) Empyema of left pleural space: Plan: Patient p/w fatigue, dizziness, and cough with shortness of breath developing over 6 to 7 weeks. In the setting of history of smoking and known COPD, weight loss He was treated with doxycycline 7 weeks ago for LLL PNA on CXR after being seen in the ER CT of the chest with left loculated moderate-sized pleural effusion with pleural thickening, possible empyema and also with 5.5 x 2.4 cm subpleural left lower lobe opacity with volume loss with central lucency which could represent pneumonia, neoplastic etiology less likely. Also with right apical 2.8 x 1.7 cm density with peripheral lucency could represent mycetoma (this was also present on CT [facility] from 2005 to a lesser degree). Also with left infrahilar lymph node versus mass measuring 1.9 x 1.2 cm and possible associated endobronchial component extending to left upper lobe/lingular bronchus, multiple indeterminant subpleural nodular densities left lower lobe infectious versus neoplastic. 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 Pleural effusion fluid was bloody and is consistent with exudative effusion Pleural fluid cultures with Gram stain negative for bacteria, many WBCs, culture pending but prelim negative Pleural fluid cytology with atypical epithelial cells but mostly blood, nondiagnostic Sputum culture light normal chyna AFB smear neg, AFB cx pending Blood culture-no growth to date Flu/COVID/RSV negative Remains afebrile, no leukocytosis, symptoms are improving, in midst of the MIST- 2 protocol and draining > 200mL/day Initially on Zosyn, then converted to Unasyn on 01/28--> convert to po Augmentin bid on 01/29 for total 6 weeks abx Finish MIST-2 protocol x 3 days on 01/29-plan to remove chest tube after < 200mL/day drainage CXR with tiny left apical PTX on 01/28, now resolved on CXR 01/29 and effusion appears improved Will need repeat chest CT in 6 weeks for f/u to assess for malignancy and improvement in effusion/PNA Continue toradol, acetaminophen prn pain from chest tube Follow CBC given mild anemia and bloody effusion, bloody sputum-hgb stable; Follow BMP Defer to pulmonology as to whether needs bronchoscopy or not for RUL mycetoma as outpt Also defer to PULM as to whether or not to re-aspirate for repeat pleural fluid cytology given it was nondiagnostic (2) Emphysema: Plan: Long history of smoking, underlying emphysema Nebulizers as needed, no need for steroids Is not on maintenance inhalers (3) Hyperthyroidism: Plan: TSH normal Not on medication although methimazole is in his chart in the past Plan DVT prophylaxis-SCDs, avoid anticoagulants due to bloody pleural fluid drainage and mildly decreasing hemoglobin Disposition-continued stay on telemetry unit, but improving, possible dc to home in 1-2 days after chest tube removed Admission and Anticipated Discharge Date Admission Date: January 26, 2024 Subjective Pt has some discomfort at chest tube site but no cough or SOB, having one loose stool per day, no other concerns 200mL bloody drainage in chest tube since this AM Tele with NSR normal rates Physical Exam Constitutional: + thin; no acute distress Respiratory: normal respiratory effort; no cough Auscultation: + diminished lung sounds (Left base) and + rhonchi (left base); no crackles and no wheezes Cardiovascular: RRR, no murmur, no edema Chest (Breasts): Chest: + abnormal inspection of chest (chest tube left shanta thorax posterior w/ bloody drainage) Gastrointestinal (Abdomen): normal bowel sounds, soft, nontender, no hepatosplenomegaly Psychiatric: A+Ox3, euthymic affect Results & Data Results & Data Vital Signs (Past 12 Hours) Vital Signs Temp Pulse Pulse Resp BP Pulse Ox O2 Del Method 01/30/24 09:00 Room Air 01/30/24 07:29 36.9 C 74 17 123/77 93 Room Air 01/30/24 03:17 37.0 C 76 16 128/80 94 Room Air 01/30/24 01:14 37.1 C 77 14 112/71 95 Room Air 01/30/24 00:37 71 01/29/24 23:18 Room Air Laboratory Results CBC, BMP, pleural fluid cx, blood cx, and CXR all reviewed PG Care Time/CCT Total # of Minutes Spent Total Time Spent with Patient: Total time spent is greater than 50% in coordination of care (as documented) at patient's floor/unit and/or counseling patient: Coding Level of Care Code 87892 SUB INP/OBS CARE 235MIN Diagnoses Empyema of left pleural space J86.9 Emphysema J43.9 Hyperthyroidism E05.90
[2024-01-30] MEDS: AMOXICILLIN/CLAVULANATE 875 MG TAB PO ONE (11:15)
[2024-01-30] MEDS ORDERED: AMPICILLIN/SULBACTAM SOD 3,000 MG/100 ML BAG IV SCH (16:00)
[2024-01-30] MEDS: AMOXICILLIN/CLAVULANATE 875 MG TAB PO SCH (17:06)
--- NOTE | 2024-01-31 07:22 | XRay Report ---
XR chest 1V portable HISTORY: 63 years-old Male chest tube status post placement of a left-sided chest tube COMPARISON: 01/30/2024, CTA chest dated 1024 TECHNIQUE: AP view of the chest FINDINGS: Left basilar chest tube and a small left pleural effusion are again noted. No definite pneumothorax. The heart is normal in size. Linear scarlike densities within the right midlung zone persist. Emphyse ma again noted. Hazy left basilar density remains unchanged. No evidence for pulmonary edema. No acut e fractures. Right apical pleural thickening and a right apical nodular density remain unchanged. Thi s may represent a mycetoma compared to the recent CT. IMPRESSION: 1. Left basilar chest tube is within unchanged positioning. No pneumothorax identified. 2. Small left pleural effusion and left basilar densities persist. 3. Right apical density/mycetoma redemonstrated. ACT 112: Negative or not required by law. The above report was generated using voice recognition software. It may contain grammatical, syntax o r spelling errors. Electronically signed by: Mingo Booker M.D. 01/31/2024 7:21 AM
[2024-01-31 07:47] LABS: Basophils # (auto) 0.03 K/uL (0.00-0.20); Basophils % (auto) 0.5 %; Eosinophils # (auto) 0.29 K/uL (0.00-0.50); Hematocrit (blood only) 30.6 % (42.0-52.0); Immature Granulocytes # (auto) 0.02 K/uL (0.01-0.20); Immature Granulocytes % (auto) 0.3 %; Lymphocytes # (auto) 1.18 K/uL (1.20-3.40); Lymphocytes % (auto) 20.3 %; Mean Corpuscular Hemoglobin 28.6 pg (25.0-34.0); Mean Corpuscular Hgb Conc 32.7 g/dL (32.0-36.0); Mean Corpuscular Volume 87.4 fL (80.0-100.0); Mean Platelet Volume 9.4 fL (9.4-12.4); Monocytes % (auto) 8.6 %; Neutrophils # (auto) 3.79 K/uL (1.40-6.50); Neutrophils % (auto) 65.3 %; Platelet Count 335 K/uL (130-400); RDW Coefficient of Variation 13.8 % (11.5-14.5); RDW Standard Deviation 43.8 fL (36.4-46.3); White Blood Count 5.81 K/ul (4.8-10.8)
--- NOTE | 2024-01-31 08:04 | Pulmonology Progress Note ---
Date of Service January 31, 2024 Assessment & Plan (1) Pleural effusion: (2) Emphysema: Plan IMPRESSION: 63-year-old male with a significant past medical history of emphysema with likely COPD diagnosis in the setting of significant smoking history with findings of LEFT lower lobe dense consolidative process with associated effusion who underwent pigtail catheter placement 01/27/2024. He is completed all 3 days of the mist 2 protocol with ongoing radiographic and clinical improvement. Atypical cells were identified on cytology. 1. LEFT-sided effusion - Neutrophilic exudate, possibly secondary to lung abscess with empyema versus malignancy. At this point time would recommend completing 6 weeks of antimicrobial therapy. Can transition to oral Augmentin. Patient will need follow-up with pulmonary in 6 weeks and follow-up CT scan at that point in time to determine whether or not additional intervention is required. If the radiographic abnormalities persist, will need bronchoscopy with potential biopsy. Chest tube will remain in place until drainage is less than 200 cc. Hopefully we will be able to assess for removal in the next 24-48 hours. X-ray shows ongoing radiographic improvement. 2. Pneumonia - LEFT lower lobe consolidative process noted with associated effusion as above. Will transition to Augmentin with plans for 6-week course. 3. RIGHT upper lobe apical lung density - Short-term radiographic surveillance recommended. 4. Subpleural nodules with associated LEFT infrahilar lymph node enlargement - While neoplastic process is certainly on the differential, short-term follow-up CT is favored after resolution of #1. This can be arranged in outpatient follow-up in 2 to 3 months. Thank you for allowing us to participate in the care of this pleasant patient. Pulmonary medicine will continue to follow along. Admission and Anticipated Discharge Date Admission Date: January 26, 2024 Subjective Patient seen and evaluated bedside. He offers no complaints of chest discomfort, cough, or pleuritic chest pain. He continues to put out over 300 mL from the chest tube yesterday. He complains of pain at the site of the chest tube, but otherwise is feeling well. Review of Systems Review of Systems: A complete 10 point review of systems was reviewed with the patient with pertinent positives and negatives as per history of present illness. All else were negative. Physical Exam Physical Exam: VITAL SIGNS - Vital signs and nursing notes were reviewed. GENERAL - 63-year-old male appearing his stated age who is in no acute distress. Communicates well with provider and answers questions appropriately. SKIN - LEFT sided posterior chest tube site clean, dry, and intact. LUNGS - Chest wall evaluation demonstrates increased chest wall A:P diameter. Auscultation reveals delayed air entry without wheeze. CARDIAC - RRR with S1/S2. No murmur, rubs, or gallops appreciated. PSYCH - A&Ox3 and cooperates fully with examiner. Pt is very pleasant and interacts well with examiner. Results & Data Results & Data Vital Signs (Past 12 Hours) Vital Signs Temp Pulse Pulse Resp BP Pulse Ox O2 Del Method 01/31/24 07:33 36.4 C L 83 18 90/62 L 95 Room Air 01/31/24 03:41 36.9 C 70 18 128/70 95 Room Air 01/30/24 23:39 62 01/30/24 22:41 36.8 C 67 18 127/82 97 Room Air 01/30/24 20:10 Room Air PG Care Time/CCT Total # of Minutes Spent Total Time Spent with Patient: Total time spent is greater than 50% in coordination of care (as documented) at patient's floor/unit and/or counseling patient: Coding Level of Care Code 20034 SUB INP/OBS CARE 2/35MIN Diagnoses Pleural effusion J90 Emphysema J43.9
[2024-01-31 08:15] LABS: BUN Creatinine Ratio 19.5 (10-20); Calcium 8.8 mg/dl (8.6-10.3); Creatinine Clr Calc Pharmacy 65.9 ml/min; Est GFR (Non-African American) 90.6 ml/min; Magnesium 2.1 mg/dl (1.7-2.4); Potassium 4.4 mmol/L (3.5-5.1)
--- NOTE | 2024-01-31 14:41 | Hospitalist Progress Note ---
Date of Service January 31, 2024 Assessment & Plan (1) Empyema of left pleural space: Plan: Patient p/w fatigue, dizziness, and cough with shortness of breath developing over 6 to 7 weeks. In the setting of history of smoking and known COPD, weight loss He was treated with doxycycline 7 weeks ago for LLL PNA on CXR after being seen in the ER CT of the chest with left loculated moderate-sized pleural effusion with pleural thickening, possible empyema and also with 5.5 x 2.4 cm subpleural left lower lobe opacity with volume loss with central lucency which could represent pneumonia, neoplastic etiology less likely. Also with right apical 2.8 x 1.7 cm density with peripheral lucency could represent mycetoma (this was also present on CT [facility] from 2005 to a lesser degree). Also with left infrahilar lymph node versus mass measuring 1.9 x 1.2 cm and possible associated endobronchial component extending to left upper lobe/lingular bronchus, multiple indeterminant subpleural nodular densities left lower lobe infectious versus neoplastic. 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 Pleural effusion fluid was bloody and is consistent with exudative effusion Pleural fluid cultures with Gram stain negative for bacteria, many WBCs, culture pending but prelim negative Pleural fluid cytology with atypical epithelial cells but mostly blood, nondiagnostic Sputum culture light normal chyna AFB smear neg, AFB cx pending Blood culture-remains no growth to date Flu/COVID/RSV negative Remains afebrile, no leukocytosis, symptoms are improving, has now finished MIST-2 protocol but continues to be draining > 200mL/day therefore chest tube will remain in place Hemoglobin remains fairly stable at 10 despite bloody drainage Initially on Zosyn, then converted to Unasyn on 01/28--> converted to po Augmentin bid on 01/29 for total 6 weeks abx Continue chest tube management as per pulmonology CXR with tiny left apical PTX on 01/28, now resolved on CXR 01/29 and effusion appears improved, CXR 01/30 stable from previous Will need repeat chest CT in 6 weeks for f/u to assess for malignancy and improvement in effusion/PNA Continue toradol, acetaminophen prn pain from chest tube Follow CBC given mild anemia and bloody effusion, bloody sputum-hgb stable; Follow BMP Defer to pulmonology as to whether needs bronchoscopy or not for RUL mycetoma as outpt Also defer to PULM as to whether or not to re-aspirate for repeat pleural fluid cytology given it was nondiagnostic (2) Emphysema: Plan: Long history of smoking, underlying emphysema Nebulizers as needed, no need for steroids Is not on maintenance inhalers (3) Hyperthyroidism: Plan: TSH normal Not on medication although methimazole is in his chart in the past Plan DVT prophylaxis-SCDs, avoid anticoagulants due to bloody pleural fluid drainage and mildly decreasing hemoglobin Disposition-continued stay on telemetry unit, but improving, possible dc to home in 1-2 days after chest tube removed Admission and Anticipated Discharge Date Admission Date: January 26, 2024 Subjective Patient reports the pain in his back at the site the chest tube is improving. He is moving his bowels and eating. No other complaints. He is coughing up only scant amounts of now clear sputum. No shortness of breath Telemetry with normal sinus rhythm with rates in the 60s to 70s Physical Exam Constitutional: + thin; no acute distress Respiratory: normal respiratory effort; no cough Auscultation: + diminished lung sounds (Left base); no crackles and no wheezes Cardiovascular: RRR, no murmur, no edema Chest (Breasts): Chest: + abnormal inspection of chest (chest tube left shanta thorax posterior w/ bloody drainage) Gastrointestinal (Abdomen): normal bowel sounds, soft, nontender, no hepatosplenomegaly Psychiatric: A+Ox3, euthymic affect Results & Data Results & Data Vital Signs (Past 12 Hours) Vital Signs Temp Pulse Resp BP Pulse Ox O2 Del Method 01/31/24 11:28 36.7 C 75 18 109/71 95 Room Air 01/31/24 07:33 36.4 C L 83 18 90/62 L 95 Room Air 01/31/24 03:41 36.9 C 70 18 128/70 95 Room Air Laboratory Results CBC, BMP, magnesium, pleural fluid culture, blood cultures reviewed Chest x-ray reviewed PG Care Time/CCT Total # of Minutes Spent Total Time Spent with Patient: Total time spent is greater than 50% in coordination of care (as documented) at patient's floor/unit and/or counseling patient: Coding Level of Care Code 53640 SUB INP/OBS CARE MIN Diagnoses Empyema of left pleural space J86.9 Emphysema J43.9 Hyperthyroidism E05.90
[2024-02-01 06:38] LABS: Basophils # (auto) 0.04 K/uL (0.00-0.20); Basophils % (auto) 0.6 %; Eosinophils % (auto) 4.3 %; Hematocrit (blood only) 32.6 % (42.0-52.0); Hemoglobin 10.5 g/dl (14.0-18.0); Immature Granulocytes # (auto) 0.03 K/uL (0.01-0.20); Immature Granulocytes % (auto) 0.4 %; Lymphocytes # (auto) 1.62 K/uL (1.20-3.40); Lymphocytes % (auto) 23.3 %; Mean Corpuscular Hemoglobin 28.5 pg (25.0-34.0); Mean Corpuscular Hgb Conc 32.2 g/dL (32.0-36.0); Mean Corpuscular Volume 88.3 fL (80.0-100.0); Mean Platelet Volume 9.3 fL (9.4-12.4); Monocytes # (auto) 0.62 K/uL (0.11-0.59); Monocytes % (auto) 8.9 %; Neutrophils # (auto) 4.33 K/uL (1.40-6.50); Neutrophils % (auto) 62.5 %; Platelet Count 342 K/uL (130-400); RDW Coefficient of Variation 14.1 % (11.5-14.5); RDW Standard Deviation 45.3 fL (36.4-46.3); Red Blood Count 3.69 M/uL (4.70-6.10); White Blood Count 6.94 K/ul (4.8-10.8)
[2024-02-01 07:02] LABS: BUN Creatinine Ratio 14.5 (10-20); Calcium 9.2 mg/dl (8.6-10.3); Creatinine Clr Calc Pharmacy 65.5 ml/min; Est GFR (Non-African American) 92.3 ml/min; Potassium 4.5 mmol/L (3.5-5.1)
--- NOTE | 2024-02-01 07:51 | XRay Report ---
XR chest 1V portable CLINICAL HISTORY: Chest tube ? MIST 2 protocol TECHNIQUE: Single frontal radiograph of the chest was obtained. Comparison: Comparison is made to chest radiograph 01/31/2024 FINDINGS: A left chest tube is seen. Calcified aortic knob is seen. The lungs are clear. No pneumothorax. Trace left pleural effusion. IMPRESSION: Left chest tube is seen without evidence of pneumothorax. Trace left pleural effusion remains. ACT 112: Negative or not required by law. Electronically signed by: Jose White M.D. 02/01/2024 7:49 AM
--- NOTE | 2024-02-01 08:41 | Pulmonology Progress Note ---
Date of Service February 01, 2024 Assessment & Plan (1) Pleural effusion: (2) Emphysema: Plan IMPRESSION: 63-year-old male with a significant past medical history of emphysema with likely COPD diagnosis in the setting of significant smoking history with findings of LEFT lower lobe dense consolidative process with associated effusion who underwent pigtail catheter placement 01/27/2024. He completed mist 2 protocol with significant improvement in his chest imaging. He continues to have high output from his chest tube. Atypical cells were identified on cytology. 1. LEFT-sided effusion - Neutrophilic exudate, possibly secondary to lung abscess with empyema versus malignancy. At this point time would recommend completing 6 weeks of antimicrobial therapy. Complete course of Augmentin as previously recommended. Patient will need follow-up with pulmonary in 6 weeks and follow-up CT scan at that point in time to determine whether or not additional intervention is required. If the radiographic abnormalities persist, will need bronchoscopy with potential biopsy. Chest tube will remain in place until drainage is less than 200 cc. Continue with chest tube to suction at this point. Hopefully we will be able to assess for removal in the next 24-48 hours. X-ray shows ongoing radiographic improvement. 2. Pneumonia - LEFT lower lobe consolidative process noted with associated effusion as above. Will transition to Augmentin with plans for 6-week course. 3. RIGHT upper lobe apical lung density - Short-term radiographic surveillance recommended. 4. Subpleural nodules with associated LEFT infrahilar lymph node enlargement - While neoplastic process is certainly on the differential, short-term follow-up CT is favored after resolution of #1. This can be arranged in outpatient follow-up in 2 to 3 months. Thank you for allowing us to participate in the care of this pleasant patient. Pulmonary medicine will continue to follow along. Admission and Anticipated Discharge Date Admission Date: January 26, 2024 Subjective Patient was seen and evaluated by myself. He continues to feel well and offers no complaints of chest discomfort or shortness of breath. No overnight events. Patient put out a total of 410 mL from his chest tube yesterday. Review of Systems Review of Systems: A complete 10 point review of systems was reviewed with the patient with pertinent positives and negatives as per history of present illness. All else were negative. Physical Exam Physical Exam: VITAL SIGNS - Vital signs and nursing notes were reviewed. GENERAL - 63-year-old male appearing his stated age who is in no acute distress. Communicates well with provider and answers questions appropriately. SKIN - LEFT sided posterior chest tube site clean, dry, and intact. LUNGS - Chest wall evaluation demonstrates increased chest wall A:P diameter. Auscultation reveals delayed air entry without wheeze. CARDIAC - RRR with S1/S2. No murmur, rubs, or gallops appreciated. PSYCH - A&Ox3 and cooperates fully with examiner. Pt is very pleasant and interacts well with examiner. Results & Data Results & Data Vital Signs (Past 12 Hours) Vital Signs Temp Pulse Pulse Resp BP Pulse Ox O2 Del Method 02/01/24 08:02 36.7 C 80 17 96/65 L 93 Room Air 02/01/24 03:47 37.2 C 78 18 102/68 94 Room Air 02/01/24 00:36 Room Air 01/31/24 23:26 37.4 C 79 18 116/74 96 Room Air 01/31/24 22:19 70 PG Care Time/CCT Total # of Minutes Spent Total Time Spent with Patient: Total time spent is greater than 50% in coordination of care (as documented) at patient's floor/unit and/or counseling patient: Coding Level of Care Code 55797 SUB INP/OBS CARE 125MIN Diagnoses Pleural effusion J90 Emphysema J43.9
--- NOTE | 2024-02-01 15:25 | Hospitalist Progress Note ---
Date of Service February 01, 2024 Assessment & Plan (1) Empyema of left pleural space: Plan: Patient p/w fatigue, dizziness, and cough with shortness of breath developing over 6 to 7 weeks. In the setting of history of smoking and known COPD, weight loss He was treated with doxycycline 7 weeks ago for LLL PNA on CXR after being seen in the ER CT of the chest with left loculated moderate-sized pleural effusion with pleural thickening, possible empyema and also with 5.5 x 2.4 cm subpleural left lower lobe opacity with volume loss with central lucency which could represent pneumonia, neoplastic etiology less likely. Also with right apical 2.8 x 1.7 cm density with peripheral lucency could represent mycetoma (this was also present on CT [facility] from 2005 to a lesser degree). Also with left infrahilar lymph node versus mass measuring 1.9 x 1.2 cm and possible associated endobronchial component extending to left upper lobe/lingular bronchus, multiple indeterminant subpleural nodular densities left lower lobe infectious versus neoplastic. 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 Pleural effusion fluid was bloody and is consistent with exudative effusion Pleural fluid cultures with Gram stain negative for bacteria, many WBCs, culture pending but prelim negative Pleural fluid cytology with atypical epithelial cells but mostly blood, nondiagnostic Sputum culture light normal chyna AFB smear neg, AFB cx pending Blood culture-remains no growth to date Flu/COVID/RSV negative Remains afebrile, no leukocytosis, symptoms are continuing to improve, has now finished MIST-2 protocol and ches ttube drainage finally slowing down Hemoglobin remains fairly stable at 10 despite bloody drainage Initially on Zosyn, then converted to Unasyn on 01/28--> converted to po Augmentin bid on 01/29 for total 6 weeks abx Maintain chest tube until draining < 200mL/day CXR with tiny left apical PTX on 01/28, now resolved on CXR 01/29 and effusion appears improved, CXR 01/30 stable from previous, CXR 01/31 much improved-less effusion on left Will need repeat chest CT in 6 weeks for f/u to assess for malignancy and improvement in effusion/PNA Continue toradol, acetaminophen prn pain from chest tube Follow CBC given mild anemia and bloody effusion, bloody sputum-hgb stable; Follow BMP Defer to pulmonology as to whether needs bronchoscopy or not for RUL mycetoma as outpt Also defer to PULM as to whether or not to re-aspirate for repeat pleural fluid cytology given it was nondiagnostic (2) Emphysema: Plan: Long history of smoking, underlying emphysema Nebulizers as needed, no need for steroids Is not on maintenance inhalers (3) Hyperthyroidism: Plan: TSH normal Not on medication although methimazole is in his chart in the past Plan DVT prophylaxis-SCDs, avoid anticoagulants due to bloody pleural fluid drainage and mildly decreasing hemoglobin Disposition-continued stay on telemetry unit, but improving, possible dc to home tomorrow if chest tube removed Admission and Anticipated Discharge Date Admission Date: January 26, 2024 Subjective Had 410mL of drainge from tube last 24 hours but only 50mL since the AM. He denies much pain, had one sputum coughed up today that was nonbloody Having one loose stool per day and is eating/drinking, no other concerns Tele with NSR normal rates Physical Exam Constitutional: + thin; no acute distress Respiratory: normal respiratory effort; no cough Auscultation: + diminished lung sounds (Left base but improved from previous); no crackles and no wheezes Cardiovascular: RRR, no murmur, no edema Chest (Breasts): Chest: + abnormal inspection of chest (chest tube left shanta thorax posterior w/ bloody drainage) Gastrointestinal (Abdomen): normal bowel sounds, soft, nontender, no hepatosplenomegaly Psychiatric: A+Ox3, euthymic affect Results & Data Results & Data Vital Signs (Past 12 Hours) Vital Signs Temp Pulse Resp BP Pulse Ox O2 Del Method 02/01/24 11:37 37.6 C H 84 16 96/60 L 94 Room Air 02/01/24 10:35 Room Air 02/01/24 08:02 36.7 C 80 17 96/65 L 93 Room Air 02/01/24 03:47 37.2 C 78 18 102/68 94 Room Air Laboratory Results CBC, BMP reviewed Diagnostic Findings CXR reviewed-appears improved, less effusion on left PG Care Time/CCT Total # of Minutes Spent Total Time Spent with Patient: Total time spent is greater than 50% in coordination of care (as documented) at patient's floor/unit and/or counseling patient: Coding Level of Care Code 42377 SUB INP/OBS CARE 235MIN Diagnoses Empyema of left pleural space J86.9 Emphysema J43.9 Hyperthyroidism E05.90
[2024-02-02 06:12] LABS: Basophils # (auto) 0.02 K/uL (0.00-0.20); Basophils % (auto) 0.3 %; Eosinophils # (auto) 0.24 K/uL (0.00-0.50); Eosinophils % (auto) 3.6 %; Hematocrit (blood only) 34.2 % (42.0-52.0); Hemoglobin 10.7 g/dl (14.0-18.0); Immature Granulocytes # (auto) 0.02 K/uL (0.01-0.20); Immature Granulocytes % (auto) 0.3 %; Lymphocytes # (auto) 1.48 K/uL (1.20-3.40); Lymphocytes % (auto) 22.5 %; Mean Corpuscular Hemoglobin 27.9 pg (25.0-34.0); Mean Corpuscular Hgb Conc 31.3 g/dL (32.0-36.0); Mean Corpuscular Volume 89.1 fL (80.0-100.0); Mean Platelet Volume 9.3 fL (9.4-12.4); Monocytes # (auto) 0.64 K/uL (0.11-0.59); Monocytes % (auto) 9.7 %; Neutrophils # (auto) 4.19 K/uL (1.40-6.50); Neutrophils % (auto) 63.6 %; Platelet Count 347 K/uL (130-400); RDW Coefficient of Variation 14.4 % (11.5-14.5); RDW Standard Deviation 45.9 fL (36.4-46.3); Red Blood Count 3.84 M/uL (4.70-6.10); White Blood Count 6.59 K/ul (4.8-10.8)
[2024-02-02 06:34] LABS: BUN Creatinine Ratio 17.2 (10-20); Calcium 9.1 mg/dl (8.6-10.3); Creatinine Clr Calc Pharmacy 62.3 ml/min; Est GFR (Non-African American) 90.6 ml/min; Potassium 4.6 mmol/L (3.5-5.1)
--- NOTE | 2024-02-02 08:28 | XRay Report ---
SINGLE VIEW CHEST CLINICAL HISTORY: Pleural effusion. Chest tube. FINDINGS: 2 AP, portable, upright chest radiographs are compared to study dated 02/01/2024 and correla agusto with chest CT dated 01/26/2024. The cardiomediastinal silhouette is unremarkable noting atheroscle rotic calcification of the thoracic aorta. Emphysema and chronic interstitial thickening is similar t o previous. Asymmetric opacification of the right apex is unchanged. A pleural drain at the left lung base is unchanged in position. There is elevation of the left hemidiaphragm with pleural fluid/conso lidation at the left lung base. No pneumothorax is seen. Foci of parenchymal scarring are seen throug hout the right lung. The skeletal structures are osteopenic. The bony thorax is grossly intact. IMPRESSION: 1. A pleural drain is again seen at the left lung base. No pneumothorax is identified. 2. Pleural fluid and consolidation at left lung base is again noted. 3. Advanced emphysema. ACT 112: Negative or not required by law. Electronically signed by: Khoa Brennan M.D. 02/02/2024 8:27 AM
--- NOTE | 2024-02-02 10:39 | Pulmonology Progress Note ---
Date of Service February 02, 2024 Assessment & Plan (1) Pleural effusion: (2) Emphysema: Plan IMPRESSION: 63-year-old male with a significant past medical history of emphysema with likely COPD diagnosis in the setting of significant smoking history with findings of LEFT lower lobe dense consolidative process with associated effusion who underwent pigtail catheter placement 01/27/2024. He is completed 2 to 3 days of the mist 2 protocol with radiographic and clinical improvement. Atypical cells were identified on cytology. Cultures negative 1. LEFT-sided effusion -neutrophilic exudate, possibly secondary to lung abscess with empyema versus malignancy. Patient is completed mist 2 protocol. Drainage is decreased significantly. Chest tube was removed today. Patient can be dismissed from the hospital. He will need outpatient follow-up with us in 6 weeks with a follow-up noncontrast CT scan of the chest 2. Pneumonia - LEFT lower lobe consolidative process noted with associated effusion as above. Continue Augmentin with plans for 6-week course 3. RIGHT upper lobe apical lung density -short-term radiographic surveillance recommended 4. Subpleural nodules with associated LEFT infrahilar lymph node enlargement - While neoplastic process is certainly on the differential, short-term follow-up CT is favored after resolution of #1. This can be arranged in outpatient follow-up in 2 to 3 months Thank you for allowing us to participate in the care of this pleasant patient. Patient can be dismissed from the hospital with follow-up as noted above. Feel free to contact us with questions or concerns Admission and Anticipated Discharge Date Admission Date: January 26, 2024 Subjective Patient is doing well clinically. Pain is well-controlled. He is not coughing or expectorating phlegm. He denies night sweats. His breathing is good. He is tolerating a diet. He is on room air. Review of Systems 2 Review of Systems: All systems reviewed & are unremarkable except as noted in Subjective Physical Exam 2 Constitutional: + thin; no acute distress Neck: trachea midline, no thyromegaly Respiratory: no respiratory distress, no labored breathing, no cough and not tachypneic Auscultation: + diminished lung sounds Chest tube site dressed Cardiovascular: RRR, no murmur, no edema Gastrointestinal (Abdomen): normal bowel sounds, soft, nontender, no hepatosplenomegaly Musculoskeletal: Extremities: extremities normal to inspection Skin: no rashes, warm and dry Neurologic: Nonfocal exam Lymphatic: no cervical lymphadenopathy Results & Data Results & Data Vital Signs (Past 12 Hours) Vital Signs Temp Pulse Pulse Resp BP Pulse Ox O2 Del Method 02/02/24 07:53 37.3 C 92 H 18 100/65 93 Room Air 02/02/24 02:45 37.1 C 80 18 101/65 95 Room Air 02/02/24 00:00 68 02/01/24 22:43 37.1 C 76 18 102/72 96 Room Air Drainage less than 100 cc over the last 24 hours from the chest tube Laboratory Results 02/02/24 05:41 02/02/24 05:41 Cultures negative Diagnostic Findings Chest x-ray from this morning was independently reviewed. No pneumothorax. Tube in good position. Airspace opacities at the left lung base essentially unchanged PG Care Time/CCT Total # of Minutes Spent Total Time Spent with Patient: Total time spent is greater than 50% in coordination of care (as documented) at patient's floor/unit and/or counseling patient: Coding Level of Care Code 11638 SUB INP/OBS CARE 2/35MIN Diagnoses Pleural effusion J90 Emphysema J43.9
--- NOTE | 2024-02-02 11:51 | Discharge Summary ---
Discharge Summary Date of Service February 02, 2024 Principal Dx & Hospital Course #1 = Principal Diagnosis (1) Empyema of left pleural space: Patient p/w fatigue, dizziness, and cough with shortness of breath developing over 6 to 7 weeks. In the setting of history of smoking and known COPD, weight loss He was treated with doxycycline 7 weeks ago for LLL PNA on CXR after being seen in the ER CT of the chest with left loculated moderate-sized pleural effusion with pleural thickening, possible empyema and also with 5.5 x 2.4 cm subpleural left lower lobe opacity with volume loss with central lucency which could represent pneumonia, neoplastic etiology less likely. Also with right apical 2.8 x 1.7 cm density with peripheral lucency could represent mycetoma (this was also present on CT [facility] from 2005 to a lesser degree). Also with left infrahilar lymph node versus mass measuring 1.9 x 1.2 cm and possible associated endobronchial component extending to left upper lobe/lingular bronchus, multiple indeterminant subpleural nodular densities left lower lobe infectious versus neoplastic. 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 Pleural effusion fluid was bloody and is consistent with exudative effusion Pleural fluid cultures negative Pleural fluid cytology with atypical epithelial cells but mostly blood, nondiagnostic Sputum culture light normal chyna AFB smear neg, AFB cx pending Blood culture-remains no growth to date Flu/COVID/RSV negative Remains afebrile, no leukocytosis, symptoms are continuing to improve, has now finished MIST-2 protocol and chest tube drainage very minimal--> chest tube removed on day of discharge Hemoglobin remains fairly stable at 10 despite bloody drainage Initially on Zosyn, then converted to Unasyn on 01/28--> converted to po Augmentin bid on 01/29 for total 6 weeks abx-end date 03/09/24 CXR improving Will need repeat chest CT in 6 weeks for f/u to assess for malignancy and improvement in effusion/PNA-this will be arranged through PULM office Defer to pulmonology as to whether needs bronchoscopy or not for RUL mycetoma as outpt Also defer to PULM as to whether or not to re-aspirate for repeat pleural fluid cytology given it was nondiagnostic (2) Emphysema: Long history of smoking, underlying emphysema Nebulizers as needed, no need for steroids Is not on maintenance inhalers-f/u with PULM as outpt (3) Hyperthyroidism: TSH normal Not on medication now but previously on methimazole Plan DVT prophylaxis-SCDs, avoided anticoagulants due to bloody pleural fluid drainage and scant hemoptysis which is now resolved Disposition-stable for dc to home today Notes For Next Care Provider Needs Chest CT and f/u with PULM in 5 weeks-this is being arranged by PULM Medication Changes From Visit Added Augmentin 875mg po bid x 5 more weeks Admission HPI Per Admitting Provider 63-year-old male with past medical history significant for hyperthyroidism, atrial fibrillation, emphysema who presents to ER with shortness of breath, dizziness, fatigue for several weeks. At the end of November, patient was treated with antibiotics for left lower lobe pneumonia, completed course of antibiotics and steroids, felt somewhat better, but now presents with above symptoms. Patient is a longtime smoker, he reports significant weight loss over 20 pounds in 2 months. He denies fever chills, denies nausea vomiting, denies chest pain, denies orthopnea, reports palpitations, TSH checked in ER normal. He only takes a baby aspirin at home, he was taking of Lopressor. He had a CT of the chest in the ER consistent with loculated moderate size left pleural effusion with associated pleural thickening. This could reflect a chronic pleural effusion. However, an empyema could appear similar. . 2.8 x 1.7 cm right apical density with peripheral lucency. This is nonspecific although could represent a mycetoma. Adjacent opacity favors scarring. Again, this is probably benign but should be assessed on follow-up CT. 5. Severe emphysema. 6. Left infrahilar lymph node versus mass which measures 1.9 x 1.2 cm. Possible associated endobronchial component extending into the left upper lobe/lingular bronchus. A neoplastic etiology cannot be excluded. This can be assessed with bronchoscopy or short-term imaging follow-up. 7. Multiple indeterminate subpleural nodular densities within the left lower lobe. These could be infectious or neoplastic and can be assessed on follow-up CT. Discharge Exam Constitutional + thin; no acute distress Respiratory normal respiratory effort; no cough Auscultation: + diminished lung sounds (Left base but improved from previous) and + rhonchi (left base); no crackles and no wheezes Cardiovascular RRR, no murmur, no edema Chest (Breasts) Chest: + abnormal inspection of chest (dressing over left posterior thorax at chest tube site) Gastrointestinal (Abdomen) normal bowel sounds, soft, nontender, no hepatosplenomegaly Psychiatric A+Ox3, euthymic affect Discharge Plan Discharge Items Patient Disposition: Home - Self-Care Reason For Visit: PNEUMONIA Discharge Diagnosis: Pneumonia with empyema Activity: As commented below Lifting: Gradually increase as tolerated Bathing: No limitations Exercise/Sports: Gradually increase as tolerated Non-emergency contact: Primary Care Provider and Animal Shelter Manager Call non-emergency contact if: you have any medication questions, your symptoms worsen, you have a fever and your temperature is above 101 Follow-up/Referrals: [place] Miranda, JACK [Hospitalist] - (Please follow up with Pulmonology PA [place] Miranda or Dr. Rivera in about 5 weeks. You will be scheduled for a CT scan of your chest prior to this appointment.) Jaren Madsen, [Primary Care Provider] - (Please follow up within 1-2 weeks ) Diet: Regular Addtl Attending Provider Instructions: Please finish out the course of antibiotics with Augmentin twice a day for 5 more weeks. You will need a repeat CT scan of your chest in 5 weeks and follow up with the Animal Shelter Manager after that. If you have worsening pain, shortness of breath, or fevers, worsening cough, please call the instructional technology instructor or your PCP fo r advice or return to the hospital. Pending Studies at Discharge: Yes (AFB culture) Stand-Alone Forms: My [facility] [place], Smoking Cessation Medications and DC Order Prescriptions: New amoxicillin-pot clavulanate 875-125 mg Tablet 1 tab PO BIDM 35 Days Qty: 70 0RF Continued aspirin [Adult Aspirin Regimen] 81 mg tablet,delayed release (DR/EC) 81 mg PO DAILY Discharge Orders: Discharge Order (Routine); Ordered 02/02/24 Ordered By: Nadiya Soler Admission Data Admit Date/Time: 01/26/24 15:39 Attending Provider: Nadiya Soler Admit Provider: Cathie Pierre Primary Care Provider: Jaren Madsen Other Providers: Cathie Pierre; Rene Méndez; Jaun Elizalde; Hitesh Pierre; Philip Ellison; Biju John; Nadiya Soler; Christa Lee; [place]; Carly Dyer; Andrey Brar; Scott Lynn; Molly Odell; Satish Bryant; Jaun Goodwin; Frankie Mora; Amy Strauss; Ruth Roman; Opal Rizzo; Lindsey Garcia; Terence Mehta; Kristal Aparicio; Jovi Barth; August Markham; Ana Pan; Candy Gold; Gregorio Bedolla; Jeniffer Rice; Hitesh Art; Philip Craig; Daphne Agulia; Kristin Pettit; Thanh Vaughan; Vinh Rivera Hospital Stay Data Consultations 01/26/24 13:33 ED Decision to Admit Stat 01/26/24 15:18 ED Decision to Admit Stat 01/26/24 15:39 Consult Pulmonology Routine Diagnostic Imagining Performed 01/26/24 11:16 CT angio chest PE protocol Stat 01/27/24 11:01 US point of care ultrasound Routine Pending Results Patient Have Any Pending Studies at Discharge: Yes (AFB culture) Discharge Instructions Given to Patient (Per Discharging Provider) Please finish out the course of antibiotics with Augmentin twice a day for 5 more weeks. You will need a repeat CT scan of your chest in 5 weeks and follow up with the Animal Shelter Manager after that. If you have worsening pain, shortness of breath, or fevers, worsening cough, please call the instructional technology instructor or your PCP for advice or return to the hospital. Total Time Total Time Spent Total Time Spent (In Minutes): 45 min Total Time Includes: Examination of the Patient, Discharge Planning and Medication Reconciliation Coding Level of Care Code 43910 INP/OBS DISCH >30 MIN Diagnoses Empyema of left pleural space J86.9 Emphysema J43.9 Hyperthyroidism E05.90
== END 2024-02-02 12:32 | disposition home or self-care (01) | DRG 177 ==
LOC: ED 09:24 → 2S 15:39 → SUATTDRO 15:39 → 2S 17:49

== ENCOUNTER 2024-08-16 10:33 | Inpatient (IN) ==
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
[2024-08-16] MEDS: OPTIRAY 320 100ml IV ONE (11:43)
[2024-08-16 11:45] LABS: Basophils # (auto) 0.02 K/uL (0.00-0.20); Basophils % (auto) 0.2 %; Hematocrit (blood only) 32.4 % (42.0-52.0); Hemoglobin 10.6 g/dl (14.0-18.0); Immature Granulocytes # (auto) 0.03 K/uL (0.01-0.20); Immature Granulocytes % (auto) 0.4 %; Lymphocytes # (auto) 0.59 K/uL (1.20-3.40); Mean Corpuscular Hemoglobin 29.8 pg (25.0-34.0); Mean Corpuscular Hgb Conc 32.7 g/dL (32.0-36.0); Mean Platelet Volume 9.6 fL (9.4-12.4); Monocytes # (auto) 0.98 K/uL (0.11-0.59); Monocytes % (auto) 11.6 %; Neutrophils # (auto) 6.84 K/uL (1.40-6.50); Neutrophils % (auto) 80.8 %; Platelet Count 256 K/uL (130-400); RDW Coefficient of Variation 14.7 % (11.5-14.5); RDW Standard Deviation 49.4 fL (36.4-46.3); Red Blood Count 3.56 M/uL (4.70-6.10); White Blood Count 8.46 K/ul (4.8-10.8)
[2024-08-16 11:46] LABS: iSTAT Creatinine 0.9 mg/dl (0.6-1.3); iSTAT Hemoglobin 10.5 g/dl (14.0-18.0); iSTAT Ionized Calcium 1.16 mmol/l (1.12-1.32); iSTAT Potassium 3.8 mmol/L (3.3-5.0)
[2024-08-16] MEDS: SODIUM CHLORIDE 0.9% 1,000 ML IV ONE (11:56)
[2024-08-16] MEDS: ONDANSETRON INJ 2 MG/ML 2 ML VIAL IV STA (11:56)
[2024-08-16 12:04] LABS: Albumin Level 3.5 gm/dl (3.4-5.0); BUN Creatinine Ratio 53.2 (10-20); Bilirubin Direct 0.1 mg/dl (0-0.2); Bilirubin,Total 0.5 mg/dl (0.2-1.0); Calcium 9.2 mg/dl (8.6-10.3); Creatinine Clr Calc Pharmacy 59.5 ml/min; Magnesium 2.2 mg/dl (1.7-2.4); Potassium 3.9 mmol/L (3.5-5.1); Total Protein 6.3 gm/dl (6.0-8.3)
[2024-08-16 12:08] LABS: Troponin I High Sensitivity 12.4 pg/ml (0-20)
[2024-08-16 12:12] LABS: INR 1.1 (0.9-1.1); Prothrombin Time 11.4 Seconds (9.0-12.0)
--- NOTE | 2024-08-16 12:20 | CT Scan Report ---
CT OF THE ABDOMEN AND PELVIS WITH CONTRAST CLINICAL HISTORY: Mid abdominal pain. On immunotherapy for lung cancer. COMPARISON STUDY: CT of the abdomen and pelvis July. PET/CT July 23, 2024. TECHNIQUE: Following IV administration of 94 mL of Optiray, axial images of the abdomen and pelvis we re obtained from the lung bases to the proximal femurs. Images were reviewed in the axial, sagittal, and coronal planes. IV contrast was administered without complication. Automated exposure control wa s utilized for the study. A dose lowering technique was utilized adhering to the principles of ALARA . CT DOSE: 322.46 mGy.cm FINDINGS: The 3.8 cm primary left lower lobe mass is again noted. A small left pleural effusion is un changed. Multiple left pleural metastases are again noted. No pneumatosis, free air or portal venous gas is present. There is hepatic steatosis with heterogeneous enhancement of the liver. No suspicious lytic lesions are identified. There is an indeterminate 1.4 cm splenic lesion. The adrenal glands, k idneys and pancreas are unremarkable. There is no biliary or pancreatic ductal dilatation . Extensive plaque within the abdominal aorta is noted. A small amount of ascites within the abdomen and pelvis is present. Small and large bowel mildly fluid-filled. There are several mildly dilated sm all bowel loops. No well defined transition point is identified. There is prominent mucosal enhanceme nt of multiple ileal loops. This has developed since prior CT. A lytic lesion within the lesser troch anter of the left femur extending into the subtrochanteric portion of the left femur measures 3.8 cm. No associated pathologic fracture is present. IMPRESSION: 1. Interval development of mucosal enhancement and mild wall thickening of several ileal loops. Fluid -filled small and large bowel with mild small bowel dilatation. No transition point. The findings fav or an enteritis which may be infectious or treatment related given the clinical history. A partial sm all bowel obstruction is within the differential but considered less likely. Small amount of ascites. No fluid collections. 2. Redemonstration of a lytic lesion within the lesser trochanter of the left femur extending into th e subtrochanteric portion of the left femur. This lesion is at risk for pathologic fracture. 3. Redemonstration of the left lower lobe mass and multiple left pleural metastases. ACT 112: Negative or not required by law. Electronically signed by: Jj Sifuentes M.D. 08/16/2024 12:18 PM
--- NOTE | 2024-08-16 12:23 | XRay Report ---
XR chest 1V portable CLINICAL HISTORY: Sepsis. COMPARISON STUDY: Chest radiograph and chest CT August 06, 2024. FINDINGS: Left internal jugular [id number] remains in place. There is no pneumothorax. Small left pleural effusion is unchanged. Left lower lobe mass is better depicted on prior chest CT. There is un derlying emphysema. There is no evidence for pulmonary edema. Cardiomediastinal silhouette is unremar kable. IMPRESSION: 1. No significant change in appearance of the chest. Small left pleural effusion and a left lower lob e mass better depicted on chest CT August 06, 2024. 2. Emphysema. ACT 112: Negative or not required by law. Electronically signed by: Jj Sifuentes M.D. 08/16/2024 12:21 PM
[2024-08-16] MEDS: SODIUM CHLORIDE 0.9% 500 ML IV ONE (12:59)
[2024-08-16 13:15] LABS: Appearance Urine Clear (Clear); Bacteria Urine Automated None Seen (None Seen); Bilirubin Urine Negative (Negative); Blood Urine Negative (Negative); Cast Urine Automated 0-2 /lpf (0-2); Color Urine Yellow; Epithelial Cell Urine Auto 0-2 /hpf (0-2); Glucose Urine UA Negative (Negative); Ketones Urine 2+ (Negative); Leukocyte Esterase Urine Negative (Negative); Nitrite Urine Negative (Negative); Protein Urine 1+ (Negative); RBC Urine Automated 0-2 /hpf (0-2); Specific Gravity Urine > 1.045 (1.000-1.030); Urobilinogen Urine Negative (Negative); WBC Urine Automated 0-5 /hpf (0-5); pH Urine 5.5 (4.5-7.5)
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
[2024-08-16] MEDS: SODIUM CHLORIDE 0.9% 1,000 ML IV SCH (14:30)
[2024-08-16] MEDS ORDERED: ACETAMINOPHEN 1,000 MG/100 ML VIAL IV PRN ×2 (15:15→15:26)
[2024-08-16] MEDS ORDERED: ONDANSETRON INJ 2 MG/ML 2 ML VIAL IV PRN (15:15)
[2024-08-16] MEDS ORDERED: NON-FORMULARY MEDICATION (Fluticasone-Umeclidin-Vilanter [Trelegy Ellipta] 100-62.5-25 mcg INH SCH (15:15)
[2024-08-16] MEDS ORDERED: MoRPHine SULFATE 2 MG/ML CARP IV PRN (15:15)
[2024-08-16] MEDS ORDERED: MoRPHine SULFATE 4 MG/ML 1 ML CARP\\VIAL IV PRN (15:15)
[2024-08-16] MEDS: HYDROmorphone INJ 0.5 MG/0.5 ML SYR IV PRN (16:09)
[2024-08-16] MEDS: ENOXAPARIN INJ 40 MG/0.4 ML SYR SQ SCH (19:38)
[2024-08-17 07:05] LABS: Eosinophils # (auto) 0.03 K/uL (0.00-0.50); Eosinophils % (auto) 0.5 %; Hematocrit (blood only) 27.5 % (42.0-52.0); Hemoglobin 8.7 g/dl (14.0-18.0); Immature Granulocytes # (auto) 0.02 K/uL (0.01-0.20); Immature Granulocytes % (auto) 0.3 %; Lymphocytes # (auto) 0.37 K/uL (1.20-3.40); Mean Corpuscular Hemoglobin 29.6 pg (25.0-34.0); Mean Corpuscular Hgb Conc 31.6 g/dL (32.0-36.0); Mean Corpuscular Volume 93.5 fL (80.0-100.0); Mean Platelet Volume 9.8 fL (9.4-12.4); Monocytes # (auto) 0.67 K/uL (0.11-0.59); Monocytes % (auto) 10.8 %; Neutrophils # (auto) 5.12 K/uL (1.40-6.50); Neutrophils % (auto) 82.4 %; Platelet Count 161 K/uL (130-400); RDW Coefficient of Variation 14.5 % (11.5-14.5); RDW Standard Deviation 49.5 fL (36.4-46.3); Red Blood Count 2.94 M/uL (4.70-6.10); White Blood Count 6.21 K/ul (4.8-10.8)
[2024-08-17 07:18] LABS: BUN Creatinine Ratio 35.4 (10-20); Creatinine Clr Calc Pharmacy 72.3 ml/min; Potassium 3.7 mmol/L (3.5-5.1)
[2024-08-17] MEDS: PNEUMOCOCCAL VACCINE (PCV20) 20-VAL CONJ-DIP CRM/PF 0.5 ML SYR IM ONE (09:10)
[2024-08-17] MEDS: ASPIRIN 81 MG ECTAB PO SCH (09:12)
[2024-08-17] MEDS: FLUTICASONE FUROATE 100MCG 14 PUFFS/INHALER INH SCH (09:12)
[2024-08-17] MEDS: UMECLIDINIUM/VILANTEROL 62.5/25MCG 7 PUFFS/INHALER INH SCH (09:13)
[2024-08-17] MEDS: HEPARIN 100 UNIT/ML 5ML FLUSH FLUSH PRN (09:13)
--- NOTE | 2024-08-17 12:36 | Hospitalist Progress Note ---
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 He presented on 08/16 for N/V/D. Patient reports he has had difficulty eating and drinking for the past 5 weeks. Recently started on hydrocodone (usually take 3 times daily). Patient is currently receiving immunotherapy infusions (pembrolizumab) every 21 days for his lung cancer. On admission CT A/P showed interval development of mucosal thickening and fluid filled bowel loops with small bowel dilation. No transition points, favors enteritis (infectious vs treatment realted), possible SBO but less likely. #Enteritis/N/V/D Receieved IVFs, now tolerating liqiuid diet. Suspect related to his immunotherapy (immune mediated colitis listed as possible significant GI reaction), constipation from recent opioid initiation and kelly bsequent laxative use. Will continue to advance diet to full liquids, and then low fiber. When tolerating more of a diet and incresaed bowel function can work on constipation regimine. infectious cause less likely with no white count, afebrile and no further diarrhea. #Anemia Chronic. 10.6 on admission which seems to be near baseline 8.7 in AM, no signs of GI bleeding, suspect dilutional component. recheck AM #Stage IV lung cancer/cachexia Currently undergoing immunotherapy with CCP BMI 14.5 on arrival Dietitian consult appreciated Disposition: continued inpatient stay VTE PPx: High risk; Lovenox 30 mg SQ q24h Admission and Anticipated Discharge Date Admission Date: August 16, 2024 Supervising Physician Co-Signing Physician Notes Attending Attestation - Chart reviewed, care plan d/w ALBA Henry. I agree w/ the becker components of her documentation. Given CT a/p findings would advise ruling out infectious etiology with stool BioFire & C diff. Jaun Elizalde MD Subjective patient seen lying in bed reports feeling alittle better. tolerating clear liquids without nausea and vomiting, states that it does make his stomach feel tight. he is passing gas, no BM yet Was taking miralax daily at home before the diarrhea started because he was constipated Review of Systems Review of Systems: All systems reviewed & are unremarkable except as noted in Subjective Physical Exam Physical Exam: General: NAD, VS as above, cachetic Resp: normal respiratory effort, lungs diminished CV: RRR, no murmur, Abd: normal bowel sounds, mild tenderness, worse in the LLQ Extremities: Moves all extremities, no edema Neuro: A&O x3, Skin: intact, no lesions noted Results & Data Results & Data Vital Signs (Past 12 Hours) Vital Signs Temp Pulse Resp BP Pulse Ox O2 Del Method 08/17/24 07:39 98.1 F 73 16 90/53 L 95 Room Air Laboratory Results CBC and chemistry reviewed PG Care Time/CCT Total # of Minutes Spent Total Time Spent with Patient: Total time spent is greater than 50% in coordination of care (as documented) at patient's floor/unit and/or counseling patient: Coding Level of Care Code 53234 SUB INP/OBS CARE 3/50MIN Diagnoses Enteritis K52.9 Nausea, vomiting, and diarrhea R11.2; R19.7 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
[2024-08-17] MEDS: ACETAMINOPHEN 500 MG TAB PO PRN (20:19)
[2024-08-17] MEDS: ENOXAPARIN INJ 30 MG/0.3 ML SYR SQ SCH (20:55)
[2024-08-18] MEDS: SODIUM CHLORIDE 0.9% 500 ML IV ONE (02:48)
[2024-08-18 08:02] LABS: Mean Corpuscular Hemoglobin 29.8 pg (25.0-34.0); Mean Corpuscular Hgb Conc 32.1 g/dL (32.0-36.0); Mean Corpuscular Volume 92.7 fL (80.0-100.0); Mean Platelet Volume 10.5 fL (9.4-12.4); Platelet Count 157 K/uL (130-400); RDW Coefficient of Variation 14.1 % (11.5-14.5); RDW Standard Deviation 47.7 fL (36.4-46.3); Red Blood Count 3.02 M/uL (4.70-6.10); White Blood Count 7.76 K/ul (4.8-10.8)
[2024-08-18 08:24] LABS: BUN Creatinine Ratio 22.2 (10-20); Creatinine Clr Calc Pharmacy 74.6 ml/min; Potassium 3.3 mmol/L (3.5-5.1)
--- NOTE | 2024-08-18 08:46 | Hospitalist Progress Note ---
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 He presented on 08/16 for N/V/D reported with difficulty eating and drinking x 5 weeks. Recent start Hydrocodone (up to TID) and receives immunotherapy infusions w/ pembrolizumab q21 days for hx squamous cell lung ca with [facility]/Dr Slade. Admission CT A/P showed interval development of mucosal thickening and fluid filled bowel loops with small bowel dilation. No transition points, favors enteritis (infectious vs treatment related), possible SBO but less likely #Enteritis/N/V/D CTAP w/ enteritis (infectious vs treatment related), SBO but less likely reported given reports diarrhea (however report to me had been CONSTIPATED and last BM last sunday, 08/09 which was worse w/ miralax use at home however notable was recently started on hydrocodone for pain and could be contributing) Suspect related to his immunotherapy (immune mediated colitis listed as possible significant GI reaction), constipation from recent opioid initiation and subsequent laxative use. Had received IVF, tolerating liquid diet No further n/v, has still not moved bowels. Will remain on FULL LIQUID diet for now Bowel regimen with colace BID for now, avoid miralax given issues w/ such in the past Had been started on prednisone by Dr Slade for such, only took couple pills reporting significant constipation and last BM reported 08/09 -KUB checked --> Residual mild small bowel distention, improved. 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 Mag 1.9. Continue to monitor electrolytes/replacement as needed. Nutritoin consulted/supplements to be provided Monitor bowels/if moving can consider advancement to low fiber in AM. Heme/onc consulted for AM given to receive chemo in AM (has next dose chemo for 3/4 per patient) PT/OT consults placed #Stage IV lung cancer Currently undergoing immunotherapy with [facility], q21day infusions as noted w/ Dr Slade. Next infusion 3/4 per patient and consult placed as above for AM/solu- medrol has been ordered. Pepcid IV BID for GI proph w/ Solu-medrol use above, pain control for LEFT hip w/ hydrocodone/other * ER visit 08/06 noted metastatic bony lesions at T6/T8 and has lytic lesion w/i lesser trochanter of left femur extending into the subtrochanteric portion of the femur. * CTA neg for PE notable but does note 3.7x1.9cm LLL primary tumor w/ pleural/jean-paul mets new since PET Jul 23 2024 Heme/onc consult/recs appreciated PT/OT consulted #cachexia 2nd to met lung ca as above, poor PO intake w/ n/v/enteritis as above BMI 14.5 on arrival - dietitian consult appreciated/supplements to be provided #Anemia Chronic. 10.6 on admission which seems to be near baseline however ?if hemoconcentrated from dehydration. Received IVF as above, hgb 8.7--> 9.0 and should monitor for any bleeding. CBC in AM #Graves disease Hx of such, prior LOW TSH. Repeat wnl. DVT proph: Lovenox SQ daily, high risk. Pepcid BID for GI proph Disposition: continued inpatient stay, IV steroids have been ordered and oncology consulted as well as PT/OT. Monitor bowels/stool studies ordered as able to produce. Full liquid diet/advance once moving bowels. Admission and Anticipated Discharge Date Admission Date: August 16, 2024 Supervising Physician Co-Signing Physician Notes Attending Attestation - Chart reviewed, care plan d/w ALBA Pruett. I agree w/ the becker components of her documentation. Given CT a/p findings would advise ruling out infectious etiology with stool BioFire & C diff. 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 Agree with IV solumedrol. Consider formal GI consult if no improvement with the above. Jaun Elizalde MD Subjective Eval this morning, resting in bed. Reports feeling better, prior intolerance to his pill steroids w/ increased bloating/constipation reported. Had gotten steroids from Dr Slade/reported unable to tolerate Issues with constipation w/ miralax and had not been passing gas. Last BM reported LAST SUNDAY, has been >1 week. Reports HAS been passing gas while inpatient. Steroids resumed in IV form/monitoring response. No nausea/vomiting. Tolerating diet. KUB repeat for today/on full liquids. Stool studies to be collected w/ next BM. Was to have appt for infusion with Dr Slade tomorrow, will see if able to see in am if still here. Physical Exam 2 Physical Exam: General: 64yo male, looks older than stated age, general pallor, cachectic HEENT: head atraumatic, normocephalic, bitemporal wasting, mm slightly dry, trachea midline Resp: diminished in the bases, faint crackles but no wheezing, 95% on RA CV: RRR, no signifciant m/r/g, no pitting edema/calf tenderness GI: +BS, soft/scaphoid, no overt tenderness but mild to deep palpation LLQ MSK/Neuro: generalized weakness but nonfocal, answering questions appropriately Psych: AOx3, cooperative Results & Data Results & Data Vital Signs (Past 12 Hours) Vital Signs Temp Pulse Pulse Resp BP BP Pulse Ox 08/18/24 07:49 36.8 C 65 16 98/62 L 95 08/18/24 03:24 95/55 L 08/18/24 02:26 37.0 C 60 16 78/45 L 82/48 L 96 O2 Del Method 08/18/24 07:49 Room Air 08/18/24 03:24 08/18/24 02:26 Room Air Laboratory Results 08/18/24 07:22 08/18/24 07:22 Mag 1.9 TSH 1.059 Diagnostic Findings KUB X-Ray 08/18/24 10:37 KUB HISTORY: f/u ileus/enteritis COMPARISON STUDY: 08/16/2024 FINDINGS: There are a few mildly distended small bowel loops, improved. No colonic distention. No gross free air. IMPRESSION: Residual mild small bowel distention, improved. ACT 112: Negative or not required by law. The above report was generated using voice recognition software. It may contain grammatical, syntax or spelling errors. Electronically signed by: Shoaib Romero M.D. 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
[2024-08-18] MEDS ORDERED: methylPREDNISolone 125 MG/2 ML VIAL IV STA (08:52)
[2024-08-18] MEDS: POTASSIUM CHLORIDE CRTAB 20 MEQ TABCR PO STA (09:17)
[2024-08-18] MEDS: HYDROCORTISONE SOD 50 MG in SYRINGE 0 ML IV STA (09:18)
[2024-08-18 10:04] LABS: Magnesium 1.9 mg/dl (1.7-2.4); Thyroid Stimulating Hormone 1.059 uIu/ml (0.300-4.500)
[2024-08-18] MEDS: methylPREDNISolone 40 MG in SYRINGE 0 ML IV STA (10:18)
--- NOTE | 2024-08-18 11:35 | XRay Report ---
KUB HISTORY: f/u ileus/enteritis COMPARISON STUDY: 08/16/2024 FINDINGS: There are a few mildly distended small bowel loops, improved. No colonic distention. No ever ss free air. IMPRESSION: Residual mild small bowel distention, improved. ACT 112: Negative or not required by law. The above report was generated using voice recognition software. It may contain grammatical, syntax o r spelling errors. Electronically signed by: Shoaib Romero M.D. 08/18/2024 11:33 AM
[2024-08-18] MEDS: FAMOTIDINE 20MG IV PUSH 20 MG/5 ML SYR IV SCH (11:37)
--- NOTE | 2024-08-18 13:58 | Electrocardiogram Report ---
Test Reason : Blood Pressure : */* mmHG Vent. Rate : 83 BPM Atrial Rate : 83 BPM P-R Int : 114 ms QRS Dur : 78 ms QT Int : 370 ms P-R-T Axes : 78 71 12 degrees QTcB Int : 434 ms Normal sinus rhythm Abnormal ECG When compared with ECG of 06-Aug-2024 13:22, T wave inversion now evident in Anterior leads Confirmed by Diego Rene ([id number]) on 08/18/2024 1:58:41 PM Referred By: Confirmed By: Diego Rene
[2024-08-18 15:25] LABS: C Reactive Protein 9.49 mg/dl (0-0.5)
[2024-08-18] MEDS: methylPREDNISolone 20 MG in SYRINGE 0 ML IV SCH (19:57)
[2024-08-18] MEDS: DOCUSATE SODIUM 100 MG CAP PO SCH (20:03)
[2024-08-18] MEDS ORDERED: methylPREDNISolone 125 MG/2 ML VIAL IV SCH (21:00)
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
--- NOTE | 2024-08-19 07:57 | Hospitalist Progress Note ---
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 He presented on 08/16 for N/V/D reported with difficulty eating and drinking x 5 weeks. Recent start Hydrocodone (up to TID) and receives immunotherapy infusions w/ pembrolizumab q21 days for hx squamous cell lung ca with [facility]/Dr Slade. Admission CT A/P showed interval development of mucosal thickening and fluid filled bowel loops with small bowel dilation. No transition points, favors enteritis (infectious vs treatment related), possible SBO but less likely Suspect related to his immunotherapy (immune mediated colitis listed as possible significant GI reaction), constipation from recent opioid initiation and subsequent laxative use. #Enteritis/N/V/D, now constipation CTAP w/ enteritis (infectious vs treatment related), SBO but less likely reported given reports diarrhea (however report to me had been CONSTIPATED and last BM last sunday which was hard/crusty and then all liquid following but nothing since that time. Notable also was started on hydrocodone for pain which could be worsening current constipation and has received IVF on admission/tolerating liquid diet No further n/v 08/18 but still not moved bowels since Full liquid diet continued CRP/ESR checked given possible immun medicated colitis, elevated to 38, 9.49 respectively Solu-medrol 40mg IV AM 08/18, continue 20mg IV BID Bowel regimen with colace, added senna, monitor stool studies w/ next BM w/ PCR/cdiff GI consulted and possible c-scope, pending attending review and heme/oncology consultation which are pending Monitor labs, inflammatory markers in AM #Stage IV lung cancer Currently undergoing immunotherapy with [facility], q21day infusions w/ pembrolizumab as noted w/ Dr Slade. Next infusion was for 3 Notable ER visit 08/06 noted met bony lesions T6/T8 w/ lytic lesion on lesser troch L femur into subtroch portion of femur and CTA neg for PE but noted primary tumor w/ pleural/jean-paul mets Diarrhea as above/enteritis could have been from chemo - steroids as above. Lovenox SQ for DVT proph/pepcid for GI proph Heme/oncology consult pending, appreciate recs/assistance #cachexia 2nd to met lung ca as above, poor PO intake w/ n/v/enteritis as above BMI 14.5 on arrival - dietitian consult appreciated/supplements to be provided #Anemia Chronic. 10.6 on admission which seems to be near baseline however ?if hemoconcentrated from dehydration. Received IVF as above, hgb 8.7--> 9.0 and should monitor for any bleeding and has remained stable at 9 but fecal occult ordered w/ next BM and will monitor CBC DVT proph: Lovenox SQ daily, high risk. Pepcid BID for GI proph Disposition: continued inpatient stay and remains on IV steroids. Stool studies pending w/ next BM and bowel regimen in place. GI consulted/possible c-scope while inpatient w/ timing TBD. Oncology consultation pending PT/OT consults pending Admission and Anticipated Discharge Date Admission Date: August 16, 2024 Supervising Physician Co-Signing Physician Notes The patient was not seen by me. The chart was reviewed. Case discussed with ALBA Borja. Agree with assessment and plan Subjective Eval this morning, resting in bed. Reports feeling better. No increased nausea/vomiting or abdominal pain.Remains on IV solu-medrol, continues BID. Passing more gas but no BM and continues on bowel regimen/stool studies once occurs. GI consult pending, was seen by someone this morning - note pending. Per patient, possible consideration for colonoscopy. Not yet seen by Dr Slade but consult pending/was discussed w/ him day prior. Physical Exam 2 Physical Exam: General: 64yo male, looks older than stated age, general pallor, cachectic, reports feeling better/increased gas HEENT: head atraumatic, normocephalic, bitemporal wasting, mm slightly dry, trachea midline Resp: diminished in the bases, faint crackles but no wheezing (resolved today), 96% on RA CV: RRR, no significant m/r/g, NO pitting edema/calf tenderness GI: +BS, soft/scaphoid, no overt tenderness, rebound or guarding MSK/Neuro: generalized weakness but nonfocal, answering questions appropriately Psych: AOx3, cooperative Results & Data Results & Data Vital Signs (Past 12 Hours) Vital Signs Temp Pulse Pulse Resp BP Pulse Ox O2 Del Method 08/19/24 07:23 36.5 C 62 16 112/70 96 Room Air 08/18/24 21:44 36.8 C 62 17 102/65 97 Room Air 08/18/24 19:55 Room Air Laboratory Results 08/19/24 09:48 08/19/24 09:48 Mag 2.0 Diagnostic Findings KUB X-Ray 08/18/24 10:37 KUB HISTORY: f/u ileus/enteritis COMPARISON STUDY: 08/16/2024 FINDINGS: There are a few mildly distended small bowel loops, improved. No colonic distention. No gross free air. IMPRESSION: Residual mild small bowel distention, improved. ACT 112: Negative or not required by law. The above report was generated using voice recognition software. It may contain grammatical, syntax or spelling errors. Electronically signed by: Shoaib Romero M.D. 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
[2024-08-19] MEDS: SENNA 8.6 MG TAB PO SCH (08:50)
[2024-08-19 10:11] LABS: Hematocrit (blood only) 27.6 % (42.0-52.0); Mean Corpuscular Hemoglobin 29.5 pg (25.0-34.0); Mean Corpuscular Hgb Conc 32.6 g/dL (32.0-36.0); Mean Corpuscular Volume 90.5 fL (80.0-100.0); Mean Platelet Volume 10.3 fL (9.4-12.4); Platelet Count 172 K/uL (130-400); RDW Standard Deviation 46.4 fL (36.4-46.3); Red Blood Count 3.05 M/uL (4.70-6.10); White Blood Count 10.39 K/ul (4.8-10.8)
[2024-08-19 10:25] LABS: BUN Creatinine Ratio 22.7 (10-20); Calcium 8.5 mg/dl (8.6-10.3); Creatinine Clr Calc Pharmacy 71.2 ml/min; Potassium 3.8 mmol/L (3.5-5.1)
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
[2024-08-19] MEDS: POLYETHYLENE (MIRALAX) 17 GM PACK PO SCH (18:22)
[2024-08-20 06:23] LABS: BUN Creatinine Ratio 32.2 (10-20); C Reactive Protein 4.25 mg/dl (0-0.5); Calcium 8.4 mg/dl (8.6-10.3); Creatinine Clr Calc Pharmacy 79.6 ml/min; Hematocrit (blood only) 27.5 % (42.0-52.0); Hemoglobin 8.9 g/dl (14.0-18.0); Magnesium 2.1 mg/dl (1.7-2.4); Mean Corpuscular Hemoglobin 29.7 pg (25.0-34.0); Mean Corpuscular Hgb Conc 32.4 g/dL (32.0-36.0); Mean Corpuscular Volume 91.7 fL (80.0-100.0); Mean Platelet Volume 10.4 fL (9.4-12.4); Platelet Count 193 K/uL (130-400); Potassium 4.6 mmol/L (3.5-5.1); RDW Coefficient of Variation 14.2 % (11.5-14.5); RDW Standard Deviation 47.3 fL (36.4-46.3); White Blood Count 12.53 K/ul (4.8-10.8)
[2024-08-20 08:12] VITALS: RESP 16; O2SAT 95
--- NOTE | 2024-08-20 08:22 | Hospitalist Progress Note ---
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 He presented on 08/16 for N/V/D reported with difficulty eating and drinking x 5 weeks. Recent start Hydrocodone (up to TID) and receives immunotherapy infusions w/ pembrolizumab q21 days for hx squamous cell lung ca with CCP/Dr Slade. Admission CT A/P showed interval development of mucosal thickening and fluid filled bowel loops with small bowel dilation. No transition points, favors enteritis (infectious vs treatment related), possible SBO but less likely Suspect related to his immunotherapy (immune mediated colitis listed as possible significant GI reaction), constipation from recent opioid initiation and subsequent laxative use. #Enteritis/N/V/D, now constipation (Suspected, Likely) Immunotherapy induced enteritis CTAP w/ enteritis (infectious vs treatment related), SBO but less likely reported given reports diarrhea (however report to me had been CONSTIPATED and last BM last sunday which was hard/crusty and then all liquid following but nothing since that time. Notable also was started on hydrocodone for pain which could be worsening current constipation and has received IVF on admission/tolerating liquid diet No further n/v 08/18 but still not moved bowels since Full liquid diet continued CRP/ESR checked given possible immun medicated colitis, elevated to 38, 9.49 respectively Solu-medrol 40mg IV AM 08/18, continue 20mg IV BID Bowel regimen with colace, added senna, monitor stool studies w/ next BM w/ PCR/cdiff GI consulted and possible c-scope, pending attending review and heme/oncology consultation which are pending Monitor labs, inflammatory markers in AM 3 --WBC elevation suspected 2nd to ongoing steroids. Has been afebrile. Hgb stable. ESR 38--> 28. CRP 9.4--> 4.25 Diet full liquids, KUB for this morning. Was given miralax last evening/scheduled for dose this morning and stool studies have been ordered. If moves bowels/obtained and KUB ok can advance diet and consider dc on prednisone taper #Stage IV lung cancer Currently undergoing immunotherapy with CCP, q21day infusions w/ pembrolizumab as noted w/ Dr Slade. Next infusion was for 3/4 Notable ER visit 08/06 noted met bony lesions T6/T8 w/ lytic lesion on lesser troch L femur into subtroch portion of femur and CTA neg for PE but noted primary tumor w/ pleural/jean-paul mets Diarrhea as above/enteritis could have been from chemo - steroids as above. Lovenox SQ for DVT proph/pepcid for GI proph Heme/oncology consult pending, appreciate recs/assistance #cachexia/ Severe protein-calorie malnutrition 2nd to met lung ca as above, poor PO intake w/ n/v/enteritis as above BMI 14.5 on arrival - dietitian consult appreciated/supplements to be provided #Anemia Chronic. 10.6 on admission which seems to be near baseline however ?if hemoco ncentrated from dehydration. Received IVF as above, hgb 8.7--> 9.0 and should monitor for any bleeding and has remained stable at 9 but fecal occult ordered w/ next BM and will monitor CBC DVT proph: Lovenox SQ daily, high risk. Pepcid BID for GI proph Disposition: continued inpatient stay and remains on IV steroids. Stool studies pending w/ next BM and bowel regimen in place. GI consulted/possible c-scope while inpatient w/ timing TBD. Oncology consultation pending PT/OT consults pending Admission and Anticipated Discharge Date Admission Date: August 16, 2024 Results & Data Results & Data Vital Signs (Past 12 Hours) Vital Signs Temp Pulse Resp BP Pulse Ox O2 Del Method 08/20/24 07:57 36.4 C L 64 16 114/68 95 Room Air 08/19/24 21:34 36.6 C 72 18 107/67 96 Room Air PG Care Time/CCT Total # of Minutes Spent Total Time Spent with Patient: Total time spent is greater than 50% in coordination of care (as documented) at patient's floor/unit and/or counseling patient: Coding Diagnoses Enteritis K52.9 Nausea, vomiting, and diarrhea R11.2; R19.7 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
--- NOTE | 2024-08-20 08:56 | XRay Report ---
KUB HISTORY: follow up COMPARISON STUDY: 08/18/2024 FINDINGS: There are a few residual minimally dilated small bowel loops at the left upper quadrant. Ot herwise the prior small bowel distention has resolved. No colonic distention. There is moderate retai michell stool. IMPRESSION: Minimal residual small bowel distention, improved. ACT 112: Negative or not required by law. The above report was generated using voice recognition software. It may contain grammatical, syntax o r spelling errors. Electronically signed by: Shoaib Romero M.D. 08/20/2024 8:55 AM
--- NOTE | 2024-08-20 09:08 | Gastroenterology Progress Note ---
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 He is symptotically improved. No plan for inpatient endoscopic evaluation. Will defer steroid taper to primary team/oncology service line. Recall GI as needed. Thank you for allowing us to participate in the care of this patient. Please call with any acute changes, questions or concerns. Please see addendum below with additional recommendation from my supervising physician. I spent a total of 40 minutes on the date of service in review of patient's record, and previously obtained information in person and appropriate medical visit, discussion and education of plan, with patient and/or caregiver, placing orders for tests/referral/procedures as medically necessary and documentation of pertinent clinical information in patient's medical records for their visit today. (2) Nausea, vomiting, and diarrhea: Admission and Anticipated Discharge Date Admission Date: August 16, 2024 Supervising Physician Co-Signing Physician Notes I saw and examined this patient with our nurse practitioner and agree with her assessment and plan. Continues to improve clinically tolerating regular diet. No GI symptoms. Suspect resolving gastroenteritis likely infectious. Okay for discharge from GI standpoint. Subjective Pt was seen and evaluated, chart reviewed. No concerns this AM. No abd pain, tolerating PO intake. No diarrhea. Review of Systems 2 Review of Systems: All other findings negative except as noted in HPI. Physical Exam Constitutional: WD/WN, vitals as above Respiratory: normal respiratory effort Cardiovascular: Rate/Rhythm: regular rate Gastrointestinal (Abdomen): normal bowel sounds, soft, nontender, no hepatosplenomegaly Results & Data Results & Data Vital Signs (Past 12 Hours) Vital Signs Temp Pulse Resp BP Pulse Ox O2 Del Method 08/20/24 07:57 97.5 F L 64 16 114/68 95 Room Air 08/19/24 21:34 97.9 F 72 18 107/67 96 Room Air Laboratory Results 08/20/24 08/19/24 Range/Units 05:49 09:48 WBC 12.53 H 10.39 (4.8-10.8) K/ul RBC 3.00 L 3.05 L (4.70-6.10) M/uL Hgb 8.9 L 9.0 L (14.0-18.0) g/dl Hct 27.5 L 27.6 L (42.0-52.0) % MCV 91.7 90.5 (80.0-100.0) fL MCH 29.7 29.5 (25.0-34.0) pg MCHC 32.4 32.6 (32.0-36.0) g/dL RDW Std Deviation 47.3 H 46.4 H (36.4-46.3) fL RDW Coeff of Gloria 14.2 14.0 (11.5-14.5) % Plt Count 193 172 (130-400) K/uL MPV 10.4 10.3 (9.4-12.4) fL ESR 28 H (0-20) mm/hr Sodium 137 131 L (136-145) mmol/L Potassium 4.6 D 3.8 (3.5-5.1) mmol/L Chloride 102 100 (98-107) mmol/L Carbon Dioxide 31 28 (21-32) mmol/L Anion Gap 4 3 (3-11) BUN 19 15 (6-23) mg/dl Creatinine 0.59 L 0.66 (0.6-1.4) mg/dl Est Cr Clr Drug Dosing 79.6 71.2 ml/min eGFR 107.01 103.44 BUN/Creatinine Ratio 32.2 H 22.7 H (10-20) Glucose 107 H 143 H (70-99(Fasting)) mg/dl Calcium 8.4 L 8.5 L (8.6-10.3) mg/dl Magnesium 2.1 2.0 (1.7-2.4) mg/dl C-Reactive Protein 4.25 H (0-0.5) mg/dl PG Care Time/CCT Total # of Minutes Spent Total Time Spent with Patient: Total time spent is greater than 50% in coordination of care (as documented) at patient's floor/unit and/or counseling patient: Coding Level of Care Code 57151 SUB INP/OBS CARE 2/35MIN Diagnoses Anemia D64.9 Nausea, vomiting, and diarrhea R11.2; R19.7
[2024-08-20] MEDS: bisacodyL 10 MG SUPP PR STA (11:45)
--- NOTE | 2024-08-20 13:49 | Discharge Summary ---
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 CTAP on admission with interval development of mucosal thickening and fluid filled bowel loops with small bowel dilation. No transition points, favors enteritis (infectious vs treatment related), possible SBO but less likely Was provided IVF hydration, antiemetics and diet advanced to liquids without n/v on 08/18 but discussed with supervising provider and reviewed imaging and obtained CRP/ESR to monitor for immune mediated process and were elevated to 38, 9.49 and started on Solu-medrol 20mg IV BID (given 40mg IV x 1 to start) with pepcid 20mg IV BID for GI prophylaxis and increased flatus/feeling better and was continued with GI/oncology consultation and stool studies ordered. No inpatient scope, also rec'd against by oncology w/ acute inflammation and can be arranged as outpatient. Notable KUB w/ decreased distension and was given dulcolax SD x 1 w/ bowel movement and stool studies sent and noted +fecal occult. (other stool studies negative) Chronic anemia/likely worse w/ immunotherapy and denied dark/tarry stool but did note some darker color however no upper/epigastric pain but cannot r/o slower bleed causing initial issues exacerbated by steroid use. -Also notable on ASA 81mg daily for hx afib but not on anticoagulation and EKG w/o afib on admission/no palpitations reported and also noted was dc'd on his BB in the past. Repeat ESR/CRP decreased to 28, 4.29 and continue slow prednisone taper 50mg x 1 week then decrease by 10mg weekly. Outpt f/u with Dr Slade, PCP, GI. Discussed if any dark/tarry stool, upper abdominal pain or hematemesis/coffee grounds to return to ER [facility] vs could consider PPI however given no pain/stable hgb and renal function w/ BP 114/68 continued pepcid BID at ne. Discussed to hold his baby aspirin for tomorrow until discussed w/ PCP given could exacerbate issues but was continued on aspirin while inpatient along with Lovenox SQ for DVT prophylaxis. Cautious use of pain medications and was given colace/senna and miralax x 2 prior to BM and should continue OTC bowel regimen with continued pain medication WBC elevation prior to dc suspected 2nd to ongoing steroid use and had remained afebrile without further infectious symptoms. Blood cultures remained NGTD>48hrs #Stage IV lung cancer Undergoing immunotherapy with [facility], q21day infusions w/ pembrolizumab as noted w/ Dr Slade with next planned infusion for 3/ however oncology consulted while inpatient and arranging for outpatient follow up. -No therapy provided 3/4 and can have outpatient follow up. Prednisone for above. noted recent rx for hydrocodone for L hip pain (has lytic lesion noted ER visit 08/06, neg CTA for PE at that time) and ongoing bowel regimen encouraged F/u Dr Slade at ne rec'd #cachexia/ Severe protein-calorie malnutrition 2nd to met lung ca as above, poor PO intake w/ n/v/enteritis as above which improved significantly w/ tx as above BMI 14.5 on arrival - dietitian consult appreciated/supplements provided diet advanced at discharge/as tolerated #Anemia Chronic. Hgb noted at 10.6 on admission however was 9.9 end of febuary and suspect hemoconcentrated from poor PO intake on admission. IVF was provided and repeat 8.7 and has been stable 8.9-9.0 on repeat As above, fecal occult + but stable BP/renal function and no epigastric pain on exam. Pepcid IV BID was started 3/3 with ASA/lovenox use for GI proph but also for steroid use and as above was continued at discharge as outlined Consideration for PPI was discussed if any ongoing/worsening issues --Notable iron studies in Jun w/ iron 34, with acceptable ferritin 229 at that time Consider repeating iron studies in f/u, PO iron (but would avoid/likely opt for IV Venofer to prevent issues w/ constipation) ASA held at dc (last dose 08/20) until verifies w/ PCP ok to continue (no recs from GI) DVT proph: Lovenox SQ daily while inpatient given high risk. -Pepcid BID for GI proph as above and to continue at dc PT rec HH services, CM notified to arrange at discharge Notes For Next Care Provider Monitor hgb count/any bleeding and consider PPI over pepcid if occurs but stable hgb/no abd pain on exam however did have +fecal occult testing Prednisone taper at dc to decrease by 10mg weekly for immune mediated colitis/enteritis per discussion w/ oncology and ok'd by GI. CRP/ESR downtrended on repeat and +BM prior to dc Encourage bowel regimena s needed w/ ongoing pain medication Rec'd to hold ASA tomorrow until discussed w/ PCP about resuming but remained on while inpatient. Appears hx afib but in NSR/EKG w/o afib noted and not on anticoagulation or BB (reported was discontinued in the past) and likely only worsening any GI issues. Consider stopping if ok w/ PCP but did discuss stroke risk w/ afib. TSH wnl at 1 Medication Changes From Visit Prednisone 50mg daily x 7 days, decrease by 10mg weekly to complete taper Pepcid 20mg PO BID Hold ASA 81mg until ok w/ PCP Colace BID, senna PO daily. Miralax 1-2x/daily as needed Admission HPI Per Admitting Provider Philip is a 64-year-old male with PMH of emphysema, tobacco use, Graves' disease, B12 deficiency anemia, and stage IV squamous cell carcinoma of left lung. He presented on 08/16 for N/V/D. Patient reports he has had difficulty eating and drinking for the past 5 weeks. While he is able to keep down water and Pedialyte, he is unable to keep down solid food. He is able to keep down his medications; takes hydrocodone (around 3 tablets daily) as needed for his hip pain. Patient is currently receiving immunotherapy infusions every 21 days for his lung cancer. Over the past 3 to 4 days, he has been unable to keep anything down. Recent ED visit on 08/06 for nausea and vomiting, and was placed on a steroid course, but was unable to tolerate this. He reports that after taking steroids, it felt like his stomach became bloated, and he did not digest any food. He had did not have a bowel movement for 7 to 8 days, but then reports he had diarrhea this morning. Diarrhea was liquidy in consistency; no blood in stool; no melena. Patient takes aspirin 81 mg daily, but did not take it this morning. He follows with Dr. Slade (oncology) for immunotherapy; he was originally supposed to have it this most recent week, but was feeling sick and postponed it next week. Patient lives alone. No sick contacts to his knowledge. He ambulates with a cane at baseline, but denies any recent falls. He has not been on antibiotics anytime recently. No history of abdominal surgeries or SBO. Patient is a former tobacco cigarette smoker but quit 1 year ago in October. No recent alcohol use. Vitals are stable at time of admission. ED course: NSS 1500 mL IV Zofran 4 mg IV ROS: Patient endorses hot flashes, chills, hip pain, lightheadedness with standing, abdominal aching, and N/V/D. Patient denies headache, chest pain, SOB, coughing, melena, blood in the urine/stool, dysuria, burning with urination, or numbness/tingling in the arms and legs. Admission Exam Per Admitting Provider General: no acute distress; non-toxic appearing; cachectic; cooperative; SpO2 95% on RA HEENT: normocephalic, atraumatic; no scleral icterus; PERRLA w/ EOMs intact; vision and hearing grossly intact Neck: supple; no lymphadenopathy; trachea midline Skin: warm, dry without signs of tenting; no cyanosis; no rashes, bruising, lesions, or erythema noted CV: chest wall NTP; RRR; S1/S2 normal; no murmurs/rubs/gallops; pulses intact and symmetric at radial, DP, and PT Lungs: no acute respiratory distress; symmetrical chest wall expansion; clear b reath sounds across all lung coleman w/o adventitious sounds; no wheezing ABD: Soft, mildly tender to palpation in the upper quadrants bilaterally; patient may exhibit a lipoma on his right flank; BS present; no rebound/guarding; no distention MSK: no tics or fasciculations; no edema noted in the LEs b/l, nonerythematous Neuro: A&Ox3; normal mood and affect; fluent speech; no focal deficits; sensat ion grossly intact in the LEs b/l Discharge Exam General: 64yo male, looks older than stated age, general pallor, cachectic, reports feeling better, moved bowels/wanting to go home, friend in room HEENT: head atraumatic, normocephalic, bitemporal wasting, mm improved, trachea midline Resp: diminished in the bases, faint crackles but no wheezing (resolved on repeat exam), 96% on RA CV: RRR, no significant m/r/g, NO pitting edema/calf tenderness GI: +BS, soft/scaphoid, decreased distension/NONTENDER, no guarding/rigidity MSK/Neuro: generalized weakness but nonfocal (improving), answering questions appropriately Psych: AOx3, cooperative Discharge Plan Discharge Items Patient Disposition: Home - Self-Care Reason For Visit: ENTERITIS,N/V/D Discharge Diagnosis: Immunotherapy induced enteritis/colitis, constipation Goals: You have been hospitalized for an acute medical problem. During your stay at [facility], we have made an effort to correct the problem that brought you to the hospital while keeping you as comfortable as possible. Medications were used to bring your condition under control and your discharge instructions will include directions for any medications you should take after leaving the hospital. Please make sure you see your Primary Care Provider as part of your follow up plan. Activity: As commented below Non-emergency contact: Primary Care Provider, [facility] Cutter and Oncologist Call non-emergency contact if: you have any medication questions, your symptoms worsen, your pain is not controlled, your pain is worsening, your pain is unusual for you and you have a fever Follow-up/Referrals: Timbo Slade MD [Physician] - Jaren Madsen DO [Primary Care Provider] - 08/25/24 9:30 am (Appointment will be with Lily Mora) Oseas Pompa MD [Physician] - Diet: Heart Healthy Addtl Attending Provider Instructions: You have been hospitalized for nausea/vomiting and concerns for diarrhea (but also constipation). Imaging noted possible enteritis/colitis from your immunotherapy (treatment for cancer) with Dr Slade and I consulted both him and GI while inpatient. There is no plans for inpatient scope but can be done as outpatient once healed from current issue and evaluation for underlying anemia in a couple months. We have started you on IV steroids and inflammatory markers have improved nicely and have had improvement on such and will be continued as PREDNISONE at discharge as discussed for a longer taper as follows: Prednisone 50mg once daily for 1 week, then decrease by 10mg every 7 days * -->Should be decreased to 40mg on August 25 for 7 days, then 30mg on September 01, 20mg on September 08, etc to complete the course Your hemoglobin remained stable but I also placed you on Pepcid twice daily for GI issues/prevention of bleeding prior and are continuing this at discharge TWICE DAILY. Your stool did show microscopic amount of blood and there is possibility with your nausea/vomiting that you had some slower bleeding but given stable we are continuing pepcid twice daily but if having any further dark/black stools or b lood in vomiting should return to ER/consider pantoprazole. HOLD OFF YOUR BABY ASPIRIN FOR NOW UNTIL DISCUSSED WITH PRIMARY CARE IN FOLLOW UP. Bowel regimen should be continued with colace twice daily and miralax 1-3 times daily to help stimulate bowel movement as pain medications can make constipation issues worse. Cautious use of your pain medications to be used only when needed to prevent constipation issues. Outpatient follow up with primary care and oncology in the next 7-10 days to monitor your status after hospitalization. Dr Slade may change your treatment as previously discussed in follow up. Return to ER with any worsening symptoms or symptoms concerning for you and again as discussed, please return to ER [facility] if any increased upper abdominal pain/nausea/vomiting, vomiting that looks like coffee grounds or bright red blood. It has been a pleasure being a part of the medical team providing for you while you have been in the hospital. Take care! Pending Studies at Discharge: Yes Studies:: blood cultures-- no growth to date Stand-Alone Forms: My [facility] WatchDox, Pain - Opioid Pain Management, Smoking Cessation Medications and DC Order Prescriptions: New sennosides [Senokot] 8.6 mg Tablet 17.2 mg PO QAM Qty: 14 0RF polyethylene glycol 3350 [Miralax] 17 gram Powder In Packet 17 g PO DAILY Qty: 30 0RF docusate sodium 100 mg Capsule 100 mg PO BID Qty: 30 0RF famotidine [Pepcid] 20 mg tablet 20 mg PO BID 56 Days Qty: 112 0RF prednisone 20 mg tablet See Rx Instructions .ROUTE .COMPLEX Qty: 53 0RF Rx Instructions: 50mg by mouth for 7 days, then decrease by 10mg every 7 days to complete taper Continued Trelegy Ellipta 100-62.5-25 mcg blister with device 1 inh inhalation UD Patient Comments: Lot 10 [id number]; Exp 2025-Sep x 4 sample boxes Rx Instructions: 1 inh inhalation q24 unable to verify, no fill history available ondansetron 4 mg tablet,disintegrating 4 mg PO Q8H PRN (Reason: nausea and vomiting) Qty: 30 0RF Rx Instructions: filled 08/06 10 day supply hydrocodone-acetaminophen 5-325 mg tablet 1 tab PO DIRECTED PRN (Reason: Pain) Rx Instructions: filled 06/25 30 day supply Held aspirin [Adult Aspirin Regimen] 81 mg tablet,delayed release (DR/EC) 81 mg PO QAM Hold Instructions: hold until discussed with primary care please Rx Instructions: otc unable to verify Discontinued prednisone 10 mg tablet 10 mg PO DIRECTED Rx Instructions: filled 08/07 25 day supply Discharge Orders: Discharge Order (Routine); Ordered 08/20/24 Ordered By: Francisca Leon/Other Patient Handouts: ED Gastroenteritis, Noninfectious Admission Data Admit Date/Time: 08/16/24 13:45 Attending Provider: Hitesh Pierre Admit Provider: August Markham Primary Care Provider: Jaren Madsen Other Providers: August Markham; Timbo Slade; Oseas Pompa I Other Interventions: Discharge Summary Assessment (RN) Last Done: 08/20/24 14:36 Hospital Stay Data Consultations 08/16/24 12:30 ED Decision to Admit Stat 08/18/24 10:41 Consult Oncology Routine 08/18/24 16:44 Consult Gastroenterology Routine Diagnostic Imagining Performed Chest X-Ray 08/16/24 10:52 XR chest 1V portable CLINICAL HISTORY: Sepsis. COMPARISON STUDY: Chest radiograph and chest CT August 06, 2024. FINDINGS: Left internal jugular [id number] remains in place. There is no pneumothorax. Small left pleural effusion is unchanged. Left lower lobe mass is better depicted on prior chest CT. There is underlying emphysema. There is no evidence for pulmonary edema. Cardiomediastinal silhouette is unremarkable. IMPRESSION: 1. No significant change in appearance of the chest. Small left pleural effusion and a left lower lobe mass better depicted on chest CT August 06, 2024. 2. Emphysema. ACT 112: Negative or not required by law. Electronically signed by: Jj Sifuentes M.D. 08/16/2024 12:21 PM Abdomen/Pelvis CT 08/16/24 11:02 CT OF THE ABDOMEN AND PELVIS WITH CONTRAST CLINICAL HISTORY: Mid abdominal pain. On immunotherapy for lung cancer. COMPARISON STUDY: CT of the abdomen and pelvis July. PET/CT July 23, 2024. TECHNIQUE: Following IV administration of 94 mL of Optiray, axial images of the abdomen and pelvis were obtained from the lung bases to the proximal femurs. Images were reviewed in the axial, sagittal, and coronal planes. IV contrast was administered without complication. Automated exposure control was utilized for the study. A dose lowering technique was utilized adhering to the principles of ALARA. CT DOSE: 322.46 mGy.cm FINDINGS: The 3.8 cm primary left lower lobe mass is again noted. A small left pleural effusion is unchanged. Multiple left pleural metastases are again noted. No pneumatosis, free air or portal venous gas is present. There is hepatic steatosis with heterogeneous enhancement of the liver. No suspicious lytic lesions are identified. There is an indeterminate 1.4 cm splenic lesion. The adrenal glands, kidneys and pancreas are unremarkable. There is no biliary or pancreatic ductal dilatation . Extensive plaque within the abdominal aorta is noted. A small amount of ascites within the abdomen and pelvis is present. Small and large bowel mildly fluid-filled. There are several mildly dilated small bowel loops. No well defined transition point is identified. There is prominent mucosal enhancement of multiple ileal loops. This has developed since prior CT. A lytic lesion within the lesser trochanter of the left femur extending into the subtrochanteric portion of the left femur measures 3.8 cm. No associated pathologic fracture is present. IMPRESSION: 1. Interval development of mucosal enhancement and mild wall thickening of several ileal loops. Fluid-filled small and large bowel with mild small bowel dilatation. No transition point. The findings favor an enteritis which may be infectious or treatment related given the clinical history. A partial small bowel obstruction is within the differential but considered less likely. Small amount of ascites. No fluid collections. 2. Redemonstration of a lytic lesion within the lesser trochanter of the left femur extending into the subtrochanteric portion of the left femur. This lesion is at risk for pathologic fracture. 3. Redemonstration of the left lower lobe mass and multiple left pleural metastases. ACT 112: Negative or not required by law. Electronically signed by: Jj Sifuentes M.D. 08/16/2024 12:18 PM KUB X-Ray 08/18/24 10:37 KUB HISTORY: f/u ileus/enteritis COMPARISON STUDY: 08/16/2024 FINDINGS: There are a few mildly distended small bowel loops, improved. No colonic distention. No gross free air. IMPRESSION: Residual mild small bowel distention, improved. ACT 112: Negative or not required by law. The above report was generated using voice recognition software. It may contain grammatical, syntax or spelling errors. Electronically signed by: Shoaib Romero M.D. 08/18/2024 11:33 AM KUB X-Ray 08/20/24 07:00 KUB HISTORY: follow up COMPARISON STUDY: 08/18/2024 FINDINGS: There are a few residual minimally dilated small bowel loops at the left upper quadrant. Otherwise the prior small bowel distention has resolved. No colonic distention. There is moderate retained stool. IMPRESSION: Minimal residual small bowel distention, improved. ACT 112: Negative or not required by law. The above report was generated using voice recognition software. It may contain grammatical, syntax or spelling errors. Electronically signed by: Shoaib Romero M.D. 08/20/2024 8:55 AM Discharge Instructions Given to Patient (Per Discharging Provider) You have been hospitalized for nausea/vomiting and concerns for diarrhea (but also constipation). Imaging noted possible enteritis/colitis from your immunotherapy (treatment for cancer) with Dr Slade and I consulted both him and GI while inpatient. There is no plans for inpatient scope but can be done as outpatient once healed from current issue and evaluation for underlying anemia in a couple months. We have started you on IV steroids and inflammatory markers have improved nicely and have had improvement on such and will be continued as PREDNISONE at discharge as discussed for a longer taper as follows: Prednisone 50mg once daily for 1 week, then decrease by 10mg every 7 days * -->Should be decreased to 40mg on August 25 for 7 days, then 30mg on September 01, 20mg on September 08, etc to complete the course Your hemoglobin remained stable but I also placed you on Pepcid twice daily for GI issues/prevention of bleeding prior and are continuing this at discharge TWICE DAILY. Your stool did show microscopic amount of blood and there is possibility with your nausea/vomiting that you had some slower bleeding but given stable we are continuing pepcid twice daily but if having any further dark/black stools or blood in vomiting should return to ER/consider pantoprazole. HOLD OFF YOUR BABY ASPIRIN FOR NOW UNTIL DISCUSSED WITH PRIMARY CARE IN FOLLOW UP. Bowel regimen should be continued with colace twice daily and miralax 1-3 times daily to help stimulate bowel movement as pain medications can make constipation issues worse. Cautious use of your pain medications to be used only when needed to prevent constipation issues. Outpatient follow up with primary care and oncology in the next 7-10 days to monitor your status after hospitalization. Dr Slade may change your treatment as previously discussed in follow up. Return to ER with any worsening symptoms or symptoms concerning for you and again as discussed, please return to ER [facility] if any increased upper abdominal pain/nausea/vomiting, vomiting that looks like coffee grounds or bright red blood. It has been a pleasure being a part of the medical team providing for you while you have been in the hospital. Take care! Supervising Physician Co-Signing Physician Notes The patient was not seen by me. The chart was reviewed. Case discussed with ALBA Borja. Agree with assessment and plan Total Time Total Time Spent Total Time Spent (In Minutes): 45 Coding Level of Care Code 15461 INP/OBS DISCH >30 MIN Diagnoses Enteritis K52.9 Nausea, vomiting, and diarrhea R11.2; R19.7 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
[2024-08-20 14:15] LABS: Adenovirus F 40/41 PCR Not Detected (NotDetected); Astrovirus PCR Not Detected (NotDetected); Campylobacter PCR Not Detected (NotDetected); Cryptosporidium PCR Not Detected (NotDetected); Cyclospora cayetanensis PCR Not Detected (NotDetected); Entamoeba histolytica PCR Not Detected (NotDetected); Enteroaggregative E.coli(EAEC) Not Detected (NotDetected); Enteropathogenic E.coli (EPEC) Not Detected (NotDetected); Enterotoxigenic E.coli (ETEC) Not Detected (NotDetected); Giardia lamblia PCR Not Detected (NotDetected); Norovirus GI/GII PCR Not Detected (NotDetected); Plesiomonas shigelloides PCR Not Detected (NotDetected); Rotavirus A PCR Not Detected (NotDetected); Salmonella PCR Not Detected (NotDetected); Sapovirus PCR Not Detected (NotDetected); Shiga-like Toxin E.coli (STEC) Not Detected (NotDetected); Shigella/Enteroinvasive E.coli Not Detected (NotDetected); Vibrio cholerae PCR Not Detected (NotDetected); Vibrio species PCR Not Detected (NotDetected); Yersinia enterocolitica PCR Not Detected (NotDetected)
[2024-08-20 16:18] VITALS: BP 96/62; PULSE 103; TEMP 98.1
== END 2024-08-20 18:01 | disposition home or self-care (01) | DRG 393 ==
LOC: ED 10:33 → 3W 13:45 → SUATTDRO 13:45 → 3W 14:40

== ENCOUNTER 2024-09-17 13:13 | Inpatient (IN) ==
[2024-09-17] MEDS: OPTIRAY 320 125ml IV ONE (13:24)
--- NOTE | 2024-09-17 13:34 | CT Scan Report ---
CT head/brain wo con CLINICAL HISTORY: neuro deficit, acute stroke suspected. Right-sided weakness and facial droop TECHNIQUE: Multiple axial CT images of the head were obtained without contrast. Sagittal and coronal reconstructions were done. A dose lowering technique was utilized adhering to the principles of NAVARRO Russell CT DOSE: 992.92mGy*cm COMPARISON: None FINDINGS: There is absence of the rausch-white differentiation and mild encephalomalacia noted in the l eft temporoparietal lesion consistent with a left sided stroke. This could be confirmed with MRI if c linically warranted. There is no evidence of mass effect or hemorrhage. The bone windows are negative. There is no intra-a xial or extra-axial fluid collection, hemorrhage, or mass. IMPRESSION: Mild encephalomalacia and loss of rausch-white differentiation in the left posterior tempor oparietal region consistent with acute left-sided infarct. No evidence of hemorrhage. ACT 112: Negative or not required by law. The above report was generated using voice recognition software. It may contain grammatical, syntax o r spelling errors. Electronically signed by: Mirela Ramirez M.D. 09/17/2024 1:31 PM
--- NOTE | 2024-09-17 13:45 | CT Scan Report ---
CT angio neck with con CLINICAL HISTORY: 64 years-old Male with neuro deficit, acute stroke suspected. Acute stroke like symptoms COMPARISON STUDY: CT head and CTA head studies of same day, PET/CT 07/23/2024, CTA chest 08/06/2024 TECHNIQUE: Following the IV administration of 120 mL of Optiray, CT angiogram of the neck was perform ed from the aortic arch to the skull base. Images are reviewed in the axial, sagittal, and coronal pl anes. 3-D MIPS images are created and assessed. IV contrast was administered without complication. Al l measurements were calculated based on NASCET criteria. A dose lowering technique was utilized adhe ring to the principles of ALARA. CT DOSE: 992.92 mGy.cm FINDINGS: Atherosclerosis of the thoracic aortic arch. There is unchanged chronic occlusion at the origin of th e left subclavian artery with reconstitution of flow distal to the origin of the vertebral artery sug gestive of subclavian steal. Patent innominate and imaged right subclavian arteries. Left IJ Infuse-a -Port catheter. Patent common carotid arteries. High-grade stenosis with approximately 80% narrowing at the origin of the left ICA on image 186 series 7. Additionally, there is short segment approximately 90% high-grad e stenosis at the origin of the right ICA, best seen on the sagittal images (image 15 series 700). In ternal carotid arteries are otherwise patent. The vertebral arteries are codominant and patent. There is mild stenosis of the bilateral P2 segments at the level of C4 secondary to spondylitic spurring a nd facet arthrosis. 50% stenosis at the origin of the right vertebral artery secondary to calcified p laque. Severe pulmonary emphysema. Right apical mycetoma partially imaged. Unremarkable soft tissues. Degene rative changes of the cervical spine. Polypoid mucosal thickening in the left sphenoid sinus. IMPRESSION: 1. Atherosclerotic plaque of the carotid bulbs with high-grade stenosis at the origin of the bilatera l internal carotid arteries. 2. 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 3. No dissection. 4. Severe pulmonary emphysema with partially imaged right apical mycetoma redemonstrated. ACT 112: Negative or not required by law. The above report was generated using voice recognition software. It may contain grammatical, syntax o r spelling errors. Electronically signed by: Mingo Booker M.D. 09/17/2024 1:43 PM
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
[2024-09-17 14:02] LABS: Basophils # (auto) 0.02 K/uL (0.00-0.20); Basophils % (auto) 0.3 %; Eosinophils # (auto) 0.02 K/uL (0.00-0.50); Eosinophils % (auto) 0.3 %; Hematocrit (blood only) 23.8 % (42.0-52.0); Hemoglobin 7.7 g/dl (14.0-18.0); Immature Granulocytes # (auto) 0.02 K/uL (0.01-0.20); Immature Granulocytes % (auto) 0.3 %; Lymphocytes # (auto) 0.63 K/uL (1.20-3.40); Mean Corpuscular Hemoglobin 28.5 pg (25.0-34.0); Mean Corpuscular Hgb Conc 32.4 g/dL (32.0-36.0); Mean Corpuscular Volume 88.1 fL (80.0-100.0); Mean Platelet Volume 10.5 fL (9.4-12.4); Monocytes # (auto) 0.45 K/uL (0.11-0.59); Monocytes % (auto) 7.9 %; Neutrophils # (auto) 4.58 K/uL (1.40-6.50); Neutrophils % (auto) 80.2 %; Platelet Count 165 K/uL (130-400); RDW Coefficient of Variation 16.8 % (11.5-14.5); White Blood Count 5.72 K/ul (4.8-10.8)
--- NOTE | 2024-09-17 14:02 | Electrocardiogram Report ---
Test Reason : Blood Pressure : */* mmHG Vent. Rate : 72 BPM Atrial Rate : 72 BPM P-R Int : 110 ms QRS Dur : 80 ms QT Int : 392 ms P-R-T Axes : 70 39 -12 degrees QTcB Int : 429 ms Poor data quality, interpretation may be adversely affected Sinus rhythm with sinus arrhythmia with short LA Abnormal ECG When compared with ECG of 16-Aug-2024 11:09, QRS voltage has decreased ST depression in Anterior leads no longer present Confirmed by Pasha Rincon ([id number]) on 09/17/2024 2:02:24 PM Referred By: Confirmed By: Pasha Rincon
[2024-09-17 14:18] LABS: Albumin Level 2.4 gm/dl (3.4-5.0); Bilirubin,Total 0.4 mg/dl (0.2-1.0); Calcium 8.1 mg/dl (8.6-10.3); Magnesium 1.7 mg/dl (1.7-2.4); Polychromasia 1+; Potassium 3.4 mmol/L (3.5-5.1)
[2024-09-17 14:24] LABS: Albumin Globulin Ratio 0.8 (0.9-2); BUN Creatinine Ratio 23.6 (10-20); Creatinine Clr Calc Pharmacy 68.7 ml/min; Globulin 2.9 gm/dl (2.5-4.0); Total Protein 5.3 gm/dl (6.0-8.3)
[2024-09-17 14:27] LABS: INR 1.1 (0.9-1.1); Partial Thromboplastin Time 28 Seconds (21-31); Prothrombin Time 11.4 Seconds (9.0-12.0)
[2024-09-17 14:30] LABS: Troponin I High Sensitivity 576.2 pg/ml (0-20)
--- NOTE | 2024-09-17 14:32 | CT Scan Report ---
CTA ANGIOGRAPHY OF THE HEAD CLINICAL HISTORY: neuro deficit, acute stroke suspected. COMPARISON STUDY: MRI of the brain March 29, 2024. TECHNIQUE: Helical axial images of the head were obtained following uneventful intravenous administr ation of 120 cc of Optiray. Sagittal and coronal reconstructions were viewed as well as maximal inten sity projections on an independent 3-D workstation. Automated exposure control was utilized for the study. A dose lowering technique was utilized adhering to the principles of ALARA. FINDINGS: Please note that the head CT will be reported separately. No acute intracranial hemorrhage, midline shift or mass effect is present. Jugular system is normal. Basal cisterns are patent. There is occlusion of the proximal left middle cerebral artery on image 117 of 249. There is partial recons titution of sylvian vessels. There is moderate to marked asymmetric diminished flow within the left s ylvian vessels when compared to the right. No additional sites of intracranial vessel occlusion are i dentified. No intracranial aneurysm. The posterior circulation is intact. IMPRESSION: Occlusion of the proximal left middle cerebral artery with moderate to marked asymmetric diminished flow within the left sylvian vessels. This occlusion is likely acute and accounts for the acute infarct within the left MCA distribution on noncontrast head CT. Findings discussed with Dr. Mike junior. ACT 112: Negative or not required by law. Electronically signed by: Jj Sifuentes M.D. 09/17/2024 2:30 PM
[2024-09-17] MEDS: ASPIRIN CHEW 324 MG PO STA (14:46)
[2024-09-17] MEDS: SODIUM CHLORIDE 0.9% 1,000 ML IV ONE (14:47)
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
[2024-09-17] MEDS ORDERED: PHARMACIST DISCHARGE MED REC CONSULT PRN (17:05)
[2024-09-17] MEDS ORDERED: ONDANSETRON INJ 2 MG/ML 2 ML VIAL IV PRN (17:16)
[2024-09-17] MEDS ORDERED: POLYETHYLENE (MIRALAX) 17 GM PACK PO PRN (17:16)
[2024-09-17] MEDS: LACTATED RINGER'S 1,000 ML IV SCH (17:49)
[2024-09-17] MEDS: ASPIRIN 300 MG SUPP PR ONE (17:49)
[2024-09-17] MEDS: FAMOTIDINE 20MG IV PUSH 20 MG/5 ML SYR IV SCH (18:35)
[2024-09-17] MEDS: POTASSIUM CHLORIDE 20 MEQ in LACTATED RINGER'S 1,000 ML IV SCH (18:36)
--- NOTE | 2024-09-17 19:09 | Billing Data ---
Date of Service September 17, 2024 Coding Level of Care Code 20124 INT INP/OBS CARE
[2024-09-17] MEDS: HYDROmorphone INJ 0.5 MG/0.5 ML SYR IV PRN (20:10)
[2024-09-18] MEDS: ACETAMINOPHEN 10MG/ML Custom 480 MG in EMPTY BAG 0 ML IV PRN (01:14)
[2024-09-18] MEDS ORDERED: HEPARIN 100 UNIT/ML 5ML FLUSH FLUSH PRN (05:35)
[2024-09-18 06:59] LABS: Basophils # (auto) 0.02 K/uL (0.00-0.20); Basophils % (auto) 0.3 %; Eosinophils # (auto) 0.03 K/uL (0.00-0.50); Eosinophils % (auto) 0.4 %; Hematocrit (blood only) 23.2 % (42.0-52.0); Hemoglobin 7.4 g/dl (14.0-18.0); Immature Granulocytes # (auto) 0.04 K/uL (0.01-0.20); Immature Granulocytes % (auto) 0.6 %; Lymphocytes % (auto) 7.1 %; Mean Corpuscular Hemoglobin 28.2 pg (25.0-34.0); Mean Corpuscular Hgb Conc 31.9 g/dL (32.0-36.0); Mean Corpuscular Volume 88.5 fL (80.0-100.0); Mean Platelet Volume 10.4 fL (9.4-12.4); Monocytes # (auto) 0.49 K/uL (0.11-0.59); Neutrophils # (auto) 5.93 K/uL (1.40-6.50); Neutrophils % (auto) 84.6 %; Platelet Count 166 K/uL (130-400); RDW Coefficient of Variation 16.9 % (11.5-14.5); RDW Standard Deviation 54.6 fL (36.4-46.3); Red Blood Count 2.62 M/uL (4.70-6.10); White Blood Count 7.01 K/ul (4.8-10.8)
[2024-09-18 07:20] LABS: Albumin Globulin Ratio 0.9 (0.9-2); Albumin Level 2.4 gm/dl (3.4-5.0); BUN Creatinine Ratio 23.3 (10-20); Bilirubin,Total 0.4 mg/dl (0.2-1.0); Calcium 8.4 mg/dl (8.6-10.3); Chol HDL Ratio 8.8 (0-5); Creatinine Clr Calc Pharmacy 83.8 ml/min; Globulin 2.8 gm/dl (2.5-4.0); Potassium 3.8 mmol/L (3.5-5.1); Total Protein 5.2 gm/dl (6.0-8.3)
[2024-09-18 07:26] LABS: RBC Morphology Unremarkable
[2024-09-18 07:53] LABS: Estimated Average Glucose 114 mg/dl; Hemoglobin A1C 5.6 % (4.5-5.6)
[2024-09-18] MEDS: ASPIRIN 300 MG SUPP PR SCH (09:23)
--- NOTE | 2024-09-18 09:40 | XRay Report ---
XR chest 2V PA/lateral CLINICAL HISTORY: acute cva. stage IV SCC of lung. aspiration risk COMPARISON STUDY: 08/16/2024 FINDINGS: There is a patchy airspace opacity involving almost the entire left lower lobe. There is p rogressive opacity in the right pulmonary apex. Right lung is otherwise unchanged. Heart size is norm al. Pulmonary vascularity is unremarkable. There is a Mediport catheter entering from the left with t ip in unchanged position of the superior vena cava. IMPRESSION: New areas of airspace opacity/consolidation in the left lower lobe and the right pulmona ry apex. ACT 112: Negative or not required by law. Electronically signed by: Mirela Ramirez M.D. 09/18/2024 9:37 AM
--- NOTE | 2024-09-18 09:52 | Pharmacy Report ---
- Date of Service September 18, 2024 - Pharmacy CVA/TIA Medication Review Medications to Prevent Stroke handout has been added to the patients discharge packet. Antiplatelet(s) * Aspirin 300 mg NH daily Cholesterol * High intensity statin deferred due to patient is currently NPO with dysphagia. LDL = 69. DVT Prophylaxis * [SCD knee] Therapeutic Anticoagulation * Hx Afib/Aflutter noted, but anticoagulation is being deferred. Patient was taken off anticoagulation meds in the past not clear why. Patient does have history of falls. Currently NPO. Type 2 Diabetes * Patient does not have T2DM
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
[2024-09-18 11:15] VITALS: TEMP 98.2
--- NOTE | 2024-09-18 15:08 | Magnetic Resonance Report ---
MR brain wo con HISTORY: 64 years-old Male Acute CVA acute strokelike symptoms COMPARISON: Head CT of same day, brain MRI 03/29/2024 TECHNIQUE: Multiplanar multisequence MRI of the brain was obtained without IV contrast FINDINGS: Motion degraded exam. There is a large acute left MCA territorial infarct measuring up to approximate ly 11 cm in length. This involves the left cerebral convexity with extension into the left basal gang mohan. Decreased signal on ADC map. Extensive cytotoxic edema results in mass effect without midline sh ift. There are a few scattered subcentimeter foci of increased diffusion-weighted signal noted within the right parieto-occipital lobes, not well-seen on the ADC map. Involutional changes with mild patchy T2/FLAIR hyperintense foci throughout the white matter likely r epresenting chronic microvascular ischemic disease. No acute intracranial hemorrhage, midline shift, hydrocephalus or intra-axial mass. Cerebral venous sinuses appear patent. Occlusion of the left middl e cerebral artery better seen on the CTA of same day. Prior bilateral lens repair. IMPRESSION: 1. Confirmation of the large acute left MCA infarct with sulcal effacement and gyral expansion second ysabel to the cytotoxic edema. 2. No midline shift, hydrocephalus or acute intracranial hemorrhage. 3. There are a few subcentimeter foci of restricted diffusion within the right parieto-occipital lobe s which may represent acute versus subacute tiny infarct versus T2 shine through from his underlying chronic microvascular ischemic disease. ACT 112: Negative or not required by law. The above report was generated using voice recognition software. It may contain grammatical, syntax o r spelling errors. Electronically signed by: Mingo Booker M.D. 09/18/2024 3:06 PM
[2024-09-18] MEDS ORDERED: HYDROmorphone INJ 0.5 MG/0.5 ML SYR IV PRN (16:35)
[2024-09-18] MEDS ORDERED: GLYCOPYRROLATE 0.2 MG/ML VIAL IV PRN (16:43)
[2024-09-18] MEDS ORDERED: ONDANSETRON INJ 2 MG/ML 2 ML VIAL IV PRN (18:01)
[2024-09-18] MEDS: HYDROmorphone INJ 1 MG/ML SYRINGE IV PRN (18:12)
--- NOTE | 2024-09-18 18:14 | Hospitalist Progress Note ---
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 Symptoms began yesterday after family found him on the ground after a fall at home, symptoms progressed, which prompted family to call EMS today. Workup revealed Acute CVA, along with elevated troponin, low potassium of 3.4, low sodium of 135, low hemoglobin of 7.7. Patient is currently unable to speak, swallow, and has R sided paralysis. He is not a candidate for anti thrombolytic therapy due to duration of symptoms. Hospitalist service was consulted and patient was admitted to PCU. Patient has not had any improvement overnight, unable to reliably follow commands. Palliative care was consulted and evaluated patient, along discussion with the patient's family was performed today regarding ongoing medical care. #Acute Ischemic left MCA stroke - likely secondary to hypercoagulable state in active cancer - Patient was not a candidate for thrombolytic therapy due to duration of symptoms on arrival to ED - CT head with acute L sided infarct w/o hemorrhage; CTA head with occlusion of proximal middle cerebral artery with moderate to marked diminished flow within left sylvian vessel. Occlusion likely acute and accounts for the acute infarct noted on CT; Neck CTA atherosclerotic plaque of carotid bulbs with high grade stenosis of bilateral internal carotid arteries, chronic occlusion of left subclavian artery, severe emphysema. on 09/17/24 - IVF with LR and KCL, along with ASA suppository 300mg daily for anti-platelet monotherapy was initiated 09/17/24 -MRI brain without contrast confirming acute left-sided infarct with occlusion of left MCA artery of 11 cm. 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 POLST was completed Code: DNR Diet: Strict NPO Aspiration & Fall Precautions Admission and Anticipated Discharge Date Admission Date: September 17, 2024 Supervising Physician Co-Signing Physician Notes The patient was not seen by me. The chart was reviewed. Case discussed with ALBA Hobbs. Agree with assessment and plan Subjective Unable to obtain history from patient, nonverbal. Patient is a 64-year-old male who is currently admitted to PCU with acute left MCA ischemic stroke. Patient is chronically ill with stage IV SCC of left lung. As a result of stroke, patient has been unable to speak, swallow, and has right-sided hemiparesis. Corneal reflexes and EOMs are not intact on the right. He is unable to reliably follow verbal commands. Currently, he has had no improvement in his symptoms/presentation. He has had gurgling, increased pain, intermittent agitation that has been controlled with medications. Patient is currently comfortable. Palliative consult was ordered. Patient was evaluated at bedside, and we had a lengthy discussion with patient's sister regarding poor prognosis and goals for the patient from this point forward. Patient's sister informed the family of patient's condition, and she and the patient's daughter returned to hospital to have a further discussion with myself about patient's condition, prognosis, and goals of care to best suit the patients wishes. Patient's daughter verbally gave consent for the patient's sister, Nadine, to be the lead decision maker in patient's medical care. POLST form was explained to patient's family and was completed today. Family wishes to have patient a DNR code and to have comfort measures only, use of antibiotics with comfort as the goal, no hydration and artificial nutrition by tube. The patient's goals are to have relief in pain and suffering, along with allowing the patient to be as independent as possible. Review of Systems Review of Systems: see HPI Physical Exam Physical Exam: General: no acute distress; (+) ill appearing; (+) cachetic (+) pallor HEENT: normocephalic, atraumatic; no scleral icterus; PERRLA w/ EOMs intact on L side only. Neck: supple; no lymphadenopathy; trachea midline Skin: warm, dry without signs of tenting; no cyanosis; no rashes, bruising, lesions, or erythema noted CV: chest wall NTP; RRR; S1/S2 normal; no murmurs/rubs/gallops; pulses intact and symmetric at radial, DP, and PT Lungs: no acute respiratory distress; symmetrical chest wall expansion; (+) rales LLL. lung otherwise CTA. ABD: Soft, NTP; BS present; no rebound/guarding; no distention MSK: no tics or fasciculations; no edema noted in the LEs b/l, nonerythematous Neuro: Awake. Nonverbal. Does not verbally follow commands. No sensation or strength RLE/RUE. Sensation and strength intact LLE/LUE. Results & Data Results & Data Vital Signs (Past 12 Hours) Vital Signs Temperature, heart rate, respiratory rate, blood pressures, oxygen saturation, oxygen delivery method reviewed Temp Pulse Pulse Resp BP Pulse Ox O2 Del Method 09/18/24 11:14 98.2 F 99 H 17 90/60 L 92 Room Air 09/18/24 08:00 87 09/18/24 08:00 Room Air 09/18/24 07:12 97.9 F 85 18 93/60 L 93 Room Air Laboratory Results CBC, BMP, troponin reviewed Diagnostic Findings MRI brain without contrast reviewed PG Care Time/CCT Total # of Minutes Spent Total Time Spent with Patient: Total time spent is greater than 50% in coordination of care (as documented) at patient's floor/unit and/or counseling patient: Coding Level of Care Code None Diagnoses Acute ischemic left MCA stroke I63.512 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
[2024-09-18] MEDS: GLYCOPYRROLATE 0.2 MG/ML VIAL IV PRN (18:35)
[2024-09-18 19:14] VITALS: BP 89/66; PULSE 97; RESP 16; O2SAT 91
[2024-09-19] MEDS: LORazepam 2 MG/1 ML VIAL IV PRN (04:44)
[2024-09-19] MEDS ORDERED: HYDROmorphone INJ 1 MG/ML SYRINGE IV PRN (08:51)
[2024-09-19] MEDS: HYDROmorphone INJ 1 MG/ML SYRINGE IV PRN (09:49)
[2024-09-19] MEDS ORDERED: STAT IV Infusion **Titration per Protocol STA (17:31)
[2024-09-19] MEDS ORDERED: HYDROmorphone BOLUS from BAG IV PRN (17:31)
--- NOTE | 2024-09-19 17:31 | Hospitalist Progress Note ---
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 Symptoms began yesterday after family found him on the ground after a fall at home, symptoms progressed, which prompted family to call EMS today. Workup revealed Acute CVA, along with elevated troponin, low potassium of 3.4, low sodium of 135, low hemoglobin of 7.7. Patient is currently unable to speak, swallow, and has R sided paralysis. He is not a candidate for anti thrombolytic therapy due to duration of symptoms. Hospitalist service was consulted and patient was admitted to PCU. Patient has not had any improvement overnight, unable to reliably follow commands. Palliative care was consulted and evaluated patient, along discussion with the patient's family was performed today regarding ongoing medical care. #Acute Ischemic left MCA stroke/Stage IV SCC of left lung -Comfort measures orders are in place -Patient's condition is rapidly declining -Transition to IV Dilaudid drip at 0.5mg/hr with 0.5mg Q15min PRN breakthrough symptoms, current dose no longer effective in controlling respirations, along with intermittent groaning indicating discomfort -Atropine drops 4 drops SL Q1H PRN for secretions added, audible rattling is heard [facility] Hospice Transfer pending visit with [facility] nurse- scheduled for tomorrow morning Family contacted with update on patient's condition. Code: DNR Diet: Strict NPO Aspiration & Fall Precautions Admission and Anticipated Discharge Date Admission Date: September 17, 2024 Supervising Physician Co-Signing Physician Notes The patient was not seen by me. The chart was reviewed. Case discussed with ALBA Hobbs. Agree with assessment and plan Subjective Patient is a 64 year old male with PMHx of Stage IV SCC of left lung with acute left MCA stroke. Acute stroke was unable to be treated with thrombolytics due to duration between ED arrival and time of symptom onset. Stroke caused significant symptoms including right sided hemiparesis, unable to speak/swallow, no corneal reflexes or EOMs on right. Patient's cognition was also questionable at that time with his ability to follow commands unreliable and inconsistent. He was i nitiated on ASA monotherapy via suppository on admission with no improvement. MRI brain confirmed acute MCA stroke with an occlusion of 11cm present. His condition is complicated by Stage IV SCC with bone metastasis and pathological L hip fracture, and his functional status was declining for months prior to stroke onset. Per family, patient had been having multiple falls and not eating, and was experiencing chronic pain in L hip due to the pathological fracture. He met with oncologist this past sunday, and was told he would have had to undergo hip replacement and fully recover prior to initiating chemotherapy. Palliative consult was ordered yesterday morning, and after lengthy discussion, patient was placed on COAT ROOM ATTENDANT. Throughout stay, patient's condition has continued to rapidly decline. COAT ROOM ATTENDANT orders have helped patient to be in less visible discomfort, agitation. Family has been present at bedside today, patient's mother was able to come see him from [facility]. Palliative care is following and it has been decided to transition patient to [facility] hospice. [address] [place] [address] denied patient's insurance. [facility] nurse is coming to meet with family at bedside tomorrow morning, auth was sent by . Currently, patient's condition is very poor. He is currently asleep, but is tachypneic with RR of 28, respirations with accessory muscle use in neck and chest with retractions are present. Intermittent groans are noted. Audible gurgling/rattling is heard as well. Review of Systems Review of Systems: unable to obtain Physical Exam Physical Exam: General: patient asleep. (+) ill appearing (+) cachectic HEENT: (+) open mouth breathing with audible rattling/gurgling Lungs: (+) respiratory distress with tachypnea and accessory muscle use and retractions in neck, chest, abdomen. Lungs with diminished breath sounds and rales throughout Heart: Irregularly irregular rhythm with abnormal S1/S2 noted. 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
[2024-09-19] MEDS: HYDROmorphone 100 MG/100 ML BAG IV SCH (18:42)
--- NOTE | 2024-09-19 21:45 | Palliative Care Progress Note ---
Date of Service September 19, 2024 Assessment & Plan (1) Palliative care by specialist: Plan: Palliative care will continue to follow for ongoing EOL pt care and family support. (2) Comfort measures only status: Plan: Pt transitioned to MEDICAL ANTHROPOLOGY DIRECTOR on 09/18/24; he has frequent need for PRN medications for respiratory distress/WOB. He has been started on dilaudid drip and is pending GIP eval. (3) Need for comfort care: Plan: EOL Symptom manamgement: Pain/dyspnea/tachypnea dilaudid 0.5mg IVP PRN [id number] Initiate dilaudid driptitrate for comfort per protocol Nausea/vomitting zofran 4mg IVP q4h PRN Agitation ativan 0.5mg IVP q4h PRN Hyperactive delirium haldol 5mg IVP q6h PRN Secretions - if repositioning not effective robinul 0.4mg IV q4h PRN atropine SL 3 drops Q1h PRN Nursing care: Discontinue all medications not directed towards comfort. Detether pt from IV tubing, monitor cables, and check vitals once per shift. Please continue HFNC and titrate down as able for patient comfort. Use medications above PRN for dyspnea/tachypnea and do not increase oxygen once titrated down. Assess q1h for pain/dyspnea and treat accordingly. Admission and Anticipated Discharge Date Admission Date: September 17, 2024 Subjective Assessed pt at bedside, he was transitioned to MEDICAL ANTHROPOLOGY DIRECTOR on 09/18/24. Pt is unresponsive to verbal and gentle tactile stimuli, did not attempt to awaken in concert with comfort directed care. He appears uncomfortable, respiratory effort increased, rate 28/min with notable accessory muscle use and shoulder shrugging No visitors at bedside. Review of Systems Review of Systems: Unobtainable due to cognitive status Physical Exam Physical Exam: General: patient asleep. (+) ill appearing (+) cachectic HEENT: (+) open mouth breathing with audible rattling/gurgling Lungs: (+) respiratory distress with tachypnea and accessory muscle use and retractions in neck, chest, abdomen. Lungs with diminished breath sounds and rales throughout Heart: Irregularly irregular rhythm with abnormal S1/S2 noted. MSK: Not independently moving extremities Neuro: unable to access; patient not alert Constitutional: + acute distress, + ill appearing, + cac hectic, + altered mental status and + frail appearing Eyes: PERRL, conjunctivae normal, anicteric sclerae ENMT: Mouth: + dry oral mucous membranes Neck: trachea midline, no thyromegaly Respiratory: + respiratory distress, + labored breath ing, + retractions, + uses accessory muscles, + tachypneic and + prolonged expiratory phase Auscultation: + rales Cardiovascular: Rate/Rhythm: + tachycardic and + irregularly irregular Gastrointestinal (Abdomen): Inspection/Auscultation: + hypoactive bowel sounds Musculoskeletal: unresponsive, normal muscle tone Skin: + pallor Neurologic: unresponsive to verbal/tactile stimuli Results & Data Vital Signs (Past 12 Hours) Vital Signs Temp 36.8 C 09/18/24 17:00 Pulse 97 H 09/18/24 17:00 Resp 16 09/18/24 17:00 BP 89/66 L 09/18/24 17:00 Pulse Ox 91 09/18/24 17:00 O2 Del Method Room Air 09/19/24 07:00 Intake & Output 09/19/24 09/19/24 09/20/24 06:59 18:59 06:59 Intake Total 910 / 1920 Output Total 275 / 800 250 / 250 Balance 635 / 1120 -250 / -250 Intake: IV 910 / 1920 Potassium Chloride 20 meq In 910 / 1920 Lactated Ringer's 1,000 ml @ 80 mls/hr IV .[id number] [facility] Rx#: [id number] Output: Urine Amount (Catheter) 275 / 800 250 / 250 Lewis/Indwelling 275 / 800 250 / 250 Other: Other Intake Source NPO NPO Laboratory Results No further labs or diagnostics in concert with comfort directed care. Diagnostic Findings No further labs or diagnostics in concert with comfort directed care. Medications Administered Current Inpatient Medications Atropine Sulfate (Atropine Sulfate 1% Op Soln 5 Ml Btl) 4 drops SL Q1H PRN PRN Reason: secretions Stop: 10/19/24 16:59 Glycopyrrolate (Glycopyrrolate 0.2 Mg/Ml Vial) 0.4 mg IV Q4H PRN PRN Reason: Rattling Secretions or Pulm Congestion Stop: 10/18/24 18:00 Last Admin: 09/19/24 04:20 Dose: 0.4 mg Heparin Sodium (Porcine) (Heparin 100 Unit/Ml 5ml Flush) 5 ml FLUSH PRN PRN PRN Reason: Flush Stop: 10/18/24 05:34 Hydromorphone HCl (Hydromorphone Inj 1 Mg/Ml Syringe) 1 mg IV Q30M PRN PRN Reason: pain, dyspnea to keep <20bp Stop: 10/02/24 16:32 Last Admin: 09/19/24 16:38 Dose: 1 mg Hydromorphone HCl (Hydromorphone Bolus From Bag) 0.5 mg IV Q15M PRN PRN Reason: Comfort Care Parameters Stop: 10/03/24 17:30 Acetaminophen 480 mg/ EMPTY (BAG) 48 mls @ 192 mls/hr IV Q8H PRN PRN Reason: Pain or Fever Stop: 10/17/24 17:18 Last Infusion: 09/18/24 01:38 Dose: Infused Hydromorphone HCl (Dilaudid) 100 mg in 100 mls @ 0.5 mls/hr IV .Q96H JONATHAN; Protocol Stop: 10/03/24 17:44 Last Admin: 09/19/24 18:42 Dose: 0.5 mg/hr, 0.5 mls/hr Lorazepam (Lorazepam 2 Mg/1 Ml Vial) 1 mg IV Q6H PRN PRN Reason: Myoclonus or Agitation Stop: 10/18/24 16:34 Last Admin: 09/19/24 04:44 Dose: 1 mg Ondansetron HCl (Ondansetron Inj 2 Mg/Ml 2 Ml Vial) 4 mg IV Q4H PRN PRN Reason: Nausea &/or Vomiting Stop: 10/18/24 18:00 PG Care Time/CCT Total # of Minutes Spent Total Time Spent with Patient: Total time spent is greater than 50% in coordination of care (as documented) at patient's floor/unit and/or counseling patient: [place] [address] SUB INP/OBS CARE 3/50MIN Patient Type Established History Expanded Problem Focused Exam Expanded Problem Focused Medical Decision Making Moderate Complexity Diagnoses Palliative care by specialist Z51.5 Comfort measures only status Z51.5 Need for comfort care
[2024-09-19] MEDS: ATROPINE SULFATE 1% OP SOLN 5 ML BTL SL PRN (23:11)
--- NOTE | 2024-09-20 09:42 | Discharge Summary ---
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 Symptoms began yesterday after family found him on the ground after a fall at home, symptoms progressed, which prompted family to call EMS today. Workup revealed Acute CVA, along with elevated troponin, low potassium of 3.4, low sodium of 135, low hemoglobin of 7.7. Patient is currently unable to speak, swallow, and has R sided paralysis. He is not a candidate for anti thrombolytic therapy due to duration of symptoms. Hospitalist service was consulted and patient was admitted to PCU. Patient has not had any improvement overnight, unable to reliably follow commands. Palliative care was consulted and evaluated patient, along discussion with the patient's family was performed today regarding ongoing medical care. #Acute Ischemic left MCA stroke/Stage IV SCC of left lung -Comfort measures only -Patient's condition is declining -Transitioned to IV Dilaudid drip at 0.5mg/hr with 0.5mg Q15min PRN breakthrough symptoms yesterday late afternoon with improvement in patient's comfort and respirations. -Atropine drops 4 drops SL Q1H PRN secretions [facility] nurse met with myself, patient, and family. Patient is approved for [facility] hospice. Code: DNR Diet: Strict NPO Aspiration & Fall Precautions Admission HPI Per Admitting Provider Patient unable to give history, unable to speak. History obtained from patient's sister. Patient is a 58 year old male with past medical history of Stage IV SCC of left lung, COPD/Severe Emphysema, Mycetoma (chronic), Mild Coronary Artery Calcification, B12 deficiency, Hx of paroxysmal atrial tachycardia, Hx of atrial fibrillation (no current management), Hx of Graves Disease (treated with MMI) who presented to ED today with AMS, speech abnormalities., and right sided motor deficit. Patient lives alone, sister went to check on him yesterday around 1:00 pm and found him on the ground. She noted that his speech was a little off at that time, but felt this was due to pain medication. He denied EMS at that time, and stated that he was experiencing L hip pain, which is chronic. He requested one of his pain medications, and sister gave to him. Sister stated that she made patient go home with her because she did not feel that he was safe to be home alone due to fall. She states that over the course of last night into this morning, his speech continued to be abnormal and he then developed R sided weakness and was unable to use R arm and R facial droop. She then called EMS and patient was brought to the emergency department. Upon arrival, workup was completed and patient was found to have acute CVA. He is not a candidate for thrombolytic therapy due to time since onset of symptoms. Hospitalist service was consulted for admission. Currently, patient is unable to speak, swallow, move right side. Sister states that prior to yesterday, patient was hopeful about cancer treatment. He was receiving immunotherapy in the past and developed severe diarrhea so this was stopped. He had recent PET scan and results were given during visit on sunday. She states that the primary lung cancer had significantly decreased in size, but he did have new bone lesions on right rib and L hip with associated fracture. The plan was to have patient undergo hip replacement and then restart c hemotherapy. Patient does not have POA. He was a full code during his last admission prior to stroke. Admission Exam Per Admitting Provider General: no acute distress; (+) ill appearing; (+) cachetic (+) pallor HEENT: normocephalic, atraumatic; no scleral icterus; PERRLA w/ EOMs intact on L side. Neck: supple; no lymphadenopathy; trachea midline Skin: warm, dry without signs of tenting; no cyanosis; no rashes, bruising, lesions, or erythema noted CV: chest wall NTP; RRR; S1/S2 normal; no murmurs/rubs/gallops; pulses intact and symmetric at radial, DP, and PT Lungs: no acute respiratory distress; symmetrical chest wall expansion; (+) rales LLL. lung otherwise CTA. ABD: Soft, NTP; BS present; no rebound/guarding; no distention MSK: no tics or fasciculations; no edema noted in the LEs b/l, nonerythematous Neuro: Awake. Nonverbal. No sensation or strength RLE/RUE. Sensation and strength intact LLE/LUE. Discharge Exam Vitals: Temperature: 100.0 degrees F HR: 126 apical pulse irregular O2 sat - 60% RR: 20 BP: 65/46 mmHg General: patient asleep. (+) ill appearing (+) cachectic (+) patient appears comfortable. HEENT: (+) open mouth breathing. No audible gurgling/rattling noted. Lungs: (+) mild respiratory distress with accessory muscle use noted in neck and chest. Mild retractions in neck, no chest retractions. No accessory muscle use or retractions noted in abdomen. Diminished breath sounds and expiratory rales in mid and lower lung coleman on auscultation. Normal respiratory rate. No signs of air hunger. Heart: (+) tachycardic with irregular rhythm. No murmur, rub, gallop present. DP/DP/radial pulses palpable and equal bilaterally. MSK/Skin: Extremities warm and well perfused. No mottling visualized. Not independently moving extremities; No edema of LE B/L. ABD: Abdomen soft and nondistended; Hypoactive BS present; No palpable masses or organomegaly noted; : Lewis catheter in place; Yellow urine present in catheter tube and bag. About 45 cc urine in bag Neuro: No response to tactile or verbal stimuli. Discharge Plan Discharge Items Patient Disposition: Hospice - Medical Facility Reason For Visit: CVA Discharge Diagnosis: Need for comfort measures Comfort measures only status Declining performance status Acute left MCA stroke Stage IV SCC Cancer Cachexia Activity: As commented below Activity Comment: no activity Non-emergency contact: Hospitalist Call non-emergency contact if: you have any medication questions, your symptoms worsen, your pain is not controlled and your pain is worsening Diet: Nothing by Mouth Addtl Attending Provider Instructions: Admit to [facility] with comfort measures only Pending Studies at Discharge: No Stand-Alone Forms: My [employer] Skilled Items Patient informed of condition?: No (Patient not alert. Patient's family and primary decision maker aware) DNR: Yes Discharge Level of Care: Other Communicable Disease: No Discharge Prognosis: Deteriorating Lines: [place] Urinary Catheter: Yes Medications and DC Order Prescriptions: New glycopyrrolate 0.2 mg/mL Solution 0.4 mg IV Q4H PRN (Reason: secretions) Qty: 25 0RF hydromorphone 1 mg/mL Syringe 1 mg IV Q30M PRN (Reason: pain, respirations > 20) lorazepam 2 mg/mL Solution 1 mg IV Q6H PRN (Reason: agitation or myoclonus) Qty: 10 0RF atropine 1 % Drops 4 drp sublingual Q1H PRN (Reason: secretions) Qty: 15 0RF ondansetron HCl (PF) 4 mg/2 mL Solution 4 mg IV Q4H PRN (Reason: nausea and vomiting) Qty: 20 0RF Hydromorphone Bolus From Bag [Dilaudid Bolus From Bag] 0.5 mg IV drip CONTINOUS Qty: 10 0RF Discontinued docusate sodium 100 mg capsule 100 mg PO BID Qty: 60 1RF Rx Instructions: Does not need refilled at this time polyethylene glycol 3350 [Miralax] 17 gram powder in packet 17 g PO DAILY Qty: 30 1RF Rx Instructions: Does not need refilled at this time ondansetron 4 mg tablet,disintegrating 4 mg PO Q8H PRN (Reason: nausea and vomiting) Qty: 30 0RF famotidine [Pepcid] 20 mg tablet 20 mg PO BID 56 Days Qty: 112 0RF acetaminophen [Tylenol Ex Str Rapid Release] 500 mg Tablet 500 mg PO Q6H PRN (Reason: Pain) oxycodone-acetaminophen 10-325 mg tablet 1 tab PO Q4H PRN (Reason: Pain) Rx Instructions: Asked family member about Oxycodone allergy listed. Said they were not aware of any allergy to oxycodone. Same w/ preferred pharmacy, no oxycodone allergy on file. Discharge Orders: Discharge Order (Routine); Ordered 09/20/24 Ordered By: Sunita Iyer Admission Data Admit Date/Time: 09/17/24 17:05 Attending Provider: Hitesh Pierre Admit Provider: Sunita Iyer Primary Care Provider: Jaren Madsen Other Providers: [facility],Home Healthcare; Philip Ellison; [facility]uc[facility] Harper Hospital Stay Data Consultations 09/17/24 14:38 ED Decision to Admit Stat 09/18/24 09:20 Consult Palliative Care Routine Diagnostic Imagining Performed 09/17/24 13:03 CT angio head w con Stat CT angio neck with con Stat CT head/brain wo con Stat 09/18/24 14:33 MR brain wo con Routine Discharge Instructions Given to Patient (Per Discharging Provider) Admit to [facility] Hospice with comfort measures only Total Time Total Time Spent Total Time Spent (In Minutes): >30 Coding Level of Care Code None Diagnoses Acute ischemic left MCA stroke I63.512 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
--- NOTE | 2024-09-20 12:12 | Discharge Summary ---
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 Symptoms began yesterday after family found him on the ground after a fall at home, symptoms progressed, which prompted family to call EMS today. Workup revealed Acute CVA, along with elevated troponin, low potassium of 3.4, low sodium of 135, low hemoglobin of 7.7. Patient is currently unable to s peak, swallow, and has R sided paralysis. He is not a candidate for anti thrombolytic therapy due to duration of symptoms. Hospitalist service was consulted and patient was admitted to PCU. Patient has not had any improvement overnight, unable to reliably follow commands. Palliative care was consulted and evaluated patient, along discussion with the patient's family was performed today regarding ongoing medical care. #Acute Ischemic left MCA stroke/Stage IV SCC of left lung -Comfort measures orders are in place -Patient's condition is rapidly declining -Transitioned to IV Dilaudid drip at 0.5mg/hr with 0.5mg Q15min PRN breakthrough symptoms yesterday late afternoon with improvement. -Atropine drops 4 drops SL Q1H PRN for secretions added, secretions improved -Patient comfortable, continue current management [facility] nurse visit with patient's family and myself completed this morning, approved for [facility] hospice Proceed with ongoing comfort care measures only Admission Exam Per Admitting Provider General: no acute distress; (+) ill appearing; (+) cachetic (+) pallor HEENT: normocephalic, atraumatic; no scleral icterus; PERRLA w/ EOMs intact on L side. Neck: supple; no lymphadenopathy; trachea midline Skin: warm, dry without signs of tenting; no cyanosis; no rashes, bruising, lesions, or erythema noted CV: chest wall NTP; RRR; S1/S2 normal; no murmurs/rubs/gallops; pulses intact and symmetric at radial, DP, and PT Lungs: no acute respiratory distress; symmetrical chest wall expansion; (+) rales LLL. lung otherwise CTA. ABD: Soft, NTP; BS present; no rebound/guarding; no distention MSK: no tics or fasciculations; no edema noted in the LEs b/l, nonerythematous Neuro: Awake. Nonverbal. No sensation or strength RLE/RUE. Sensation and strength intact LLE/LUE. Discharge Exam Vitals: Temperature - 100.0 degrees F HR - 126 apical rate irregular RR - 20 BP-65/46 mmHg O2 sat - 60% General: patient asleep. (+) ill appearing (+) cachectic. (+) patient appears comfortable HEENT: (+) open mouth breathing. (+) all teeth extracted (+) no audible gurgling/rattling Lungs: No evidence of air hunger. Normal respiratory rate (+) mild respiratory distress with accessory muscle use noted in neck/chest. mild retractions in neck, chest without retractions. abdomen without accessory muscle use or retractions. diminished breath sounds with expiratory rales noted in mid and lower lung coleman bilaterally. Heart: (+) tachycardic with irregular rhythm. no murmur, rub, or gallop noted. pulses intact and symmetric at radial, DP, and PT Abdomen: abdomen soft with hypoactive BS. no palpable mass/organomegaly. no distention. : june catheter in place with urine in catheter tube. 40 cc urine in catheter bag. Urine yellow and clear Skin/MSK: Skin is warm and dry without mottling. No lesions/sores present. Not independently moving extremities Neuro: patient not responding to tactile or verbal stimuli Discharge Plan Discharge Items Patient Disposition: Hospice - Medical Facility Reason For Visit: CVA Discharge Diagnosis: Need for comfort measures Comfort measures only status Declining performance status Acute left MCA stroke Stage IV SCC Cancer Cachexia Activity: As commented below Activity Comment: no activity Non-emergency contact: Hospitalist Call non-emergency contact if: you have any medication questions, your symptoms worsen, your pain is not controlled and your pain is worsening Diet: Nothing by Mouth Addtl Attending Provider Instructions: Admit to [facility] Hospice with comfort measures only Pending Studies at Discharge: No Stand-Alone Forms: My [facility] Skilled Items Patient informed of condition?: No (Patient not alert. Patient's family and primary decision maker aware) DNR: Yes Discharge Level of Care: Other Communicable Disease: No Discharge Prognosis: Deteriorating Lines: [place] Urinary Catheter: Yes Medications and DC Order Prescriptions: New glycopyrrolate 0.2 mg/mL Solution 0.4 mg IV Q4H PRN (Reason: secretions) Qty: 25 0RF hydromorphone 1 mg/mL Syringe 1 mg IV Q30M PRN (Reason: pain, respirations > 20) lorazepam 2 mg/mL Solution 1 mg IV Q6H PRN (Reason: agitation or myoclonus) Qty: 10 0RF atropine 1 % Drops 4 drp sublingual Q1H PRN (Reason: secretions) Qty: 15 0RF ondansetron HCl (PF) 4 mg/2 mL Solution 4 mg IV Q4H PRN (Reason: nausea and vomiting) Qty: 20 0RF Hydromorphone Bolus From Bag [Dilaudid Bolus From Bag] 0.5 mg IV drip CONTINOUS Qty: 10 0RF Discontinued docusate sodium 100 mg capsule 100 mg PO BID Qty: 60 1RF Rx Instructions: Does not need refilled at this time polyethylene glycol 3350 [Miralax] 17 gram powder in packet 17 g PO DAILY Qty: 30 1RF Rx Instructions: Does not need refilled at this time ondansetron 4 mg tablet,disintegrating 4 mg PO Q8H PRN (Reason: nausea and vomiting) Qty: 30 0RF famotidine [Pepcid] 20 mg tablet 20 mg PO BID 56 Days Qty: 112 0RF acetaminophen [Tylenol Ex Str Rapid Release] 500 mg Tablet 500 mg PO Q6H PRN (Reason: Pain) oxycodone-acetaminophen 10-325 mg tablet 1 tab PO Q4H PRN (Reason: Pain) Rx Instructions: Asked family member about Oxycodone allergy listed. Said they were not aware of any allergy to oxycodone. Same w/ preferred pharmacy, no oxycodone allergy on file. Discharge Orders: Discharge Order (Routine); Ordered 09/20/24 Ordered By: Sunita Iyer Admission Data Admit Date/Time: 09/17/24 17:05 Attending Provider: Hitesh Pierre Admit Provider: Sunita Iyer Primary Care Provider: Jaren Madsen Other Providers: [facility]; Philip Ellison; [facility]uc[facility] Harper Hospital Stay Data Consultations 09/17/24 14:38 ED Decision to Admit Stat 09/18/24 09:20 Consult Palliative Care Routine Diagnostic Imagining Performed 09/17/24 13:03 CT angio head w con Stat CT angio neck with con Stat CT head/brain wo con Stat 09/18/24 14:33 MR brain wo con Routine Pending Results Patient Have Any Pending Studies at Discharge: No Discharge Instructions Given to Patient (Per Discharging Provider) Admit to [facility] Hospice with comfort measures only Supervising Physician Co-Signing Physician Notes The patient was not seen by me. The chart was reviewed. Case discussed with ALBA Hobbs. 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
== END 2024-09-20 12:55 | disposition hospice, inpatient (51) | DRG 65 ==
LOC: SUATTDRO → ED 13:13 → 2S 17:05 → SUATTDRO 17:05 → 2S 19:19 → 3E 09-20 11:55

== ENCOUNTER 2024-09-20 12:55 | Inpatient (IN) ==
[2024-09-20] MEDS ORDERED: GLYCOPYRROLATE 0.2 MG/ML VIAL IV PRN (13:40)
[2024-09-20] MEDS ORDERED: STAT IV Infusion **Titration per Protocol STA (13:40)
[2024-09-20] MEDS ORDERED: ONDANSETRON INJ 2 MG/ML 2 ML VIAL IV PRN (13:40)
[2024-09-20] MEDS ORDERED: ATROPINE SULFATE 1% OP SOLN 5 ML BTL SL PRN (13:40)
[2024-09-20] MEDS ORDERED: HYDROmorphone BOLUS from BAG IV PRN (13:40)
[2024-09-20] MEDS ORDERED: LORazepam 2 MG/1 ML VIAL IV PRN (13:40)
[2024-09-20 13:58] VITALS: BP 89/66; PULSE 94; RESP 16; O2SAT 91
[2024-09-20] MEDS: HYDROmorphone 100 MG/100 ML BAG IV SCH (13:59)
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
--- NOTE | 2024-09-21 03:25 | Death Pronouncement Note ---
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 Upon entering the room, patient was found to be in a terminal state. They were unresponsive to, and did not withdraw from, verbal or tactile stimuli such as sternal rub. They were unresponsive to corneal, pupillary, and oculocephalic reflexes. On cardiopulmonary exam, they were found to be without detectable carotid pulses, and without spontaneous heart tones or respirations. Time of was pronounced by me on 09/21/2024 at 03:23 Attending physician was notified. Next of kin was notified by Martha Zacarias RN. Additional Data Attending physician: Hitesh Pierre MD Resident Activity Tracking Resident Involvement: Resident Care Provided Care Provided: Adult [facility]
--- NOTE | 2024-09-21 17:54 | Discharge Summary ---
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 Patient also has history of Stage IV SCC of left lung. Patient was admitted to [facility] on 09/20. Patient's was pronounced by Dr. Arteaga on 09/21/24 at 3:23 am. Admission HPI Per Admitting Provider Patient is a 64 year old male with past medical history of Stage IV SCC of left lung, COPD/Severe Emphysema, Mycetoma (chronic), Mild Coronary Artery Calcification, B12 deficiency, Hx of paroxysmal atrial tachycardia, Hx of atrial fibrillation (no current management), Hx of Graves Disease (treated with MMI) who presented to ED today via EMS with AMS, speech abnormalities,and right sided motor deficit. Symptoms began yesterday after family found him on the ground after a fall at home, symptoms progressed, which prompted family to call EMS today. Workup revealed Acute CVA, along with elevated troponin, low potassium of 3.4, low sodium of 135, low hemoglobin of 7.7. Patient is currently unable to speak, swallow, and has R sided paralysis. He is not a candidate for anti thrombolytic therapy due to duration of symptoms. Hospitalist service was consulted and patient was admitted to PCU. Patient has not had any improvement overnight, unable to reliably follow commands. Palliative care was consulted and evaluated patient, along discussion with the patient's family was performed today regarding ongoing medical care with the decision to make OCCUPATIONAL THERAPY ASSIST and transition to [facility]. Discharge Plan Discharge Items Patient Disposition: Other Date/Time: 09/21/24 03:23 Supervising Physician Co-Signing Physician Notes The patient at 3:23 AM this morning, september 21. The chart was reviewed. Case discussed with ALBA Hobbs. 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
== END 2024-09-21 05:30 | disposition expired | DRG 951 ==
LOC: SUATTDRO 12:55 → 3E 12:55